=== PATIENT | male | born 1945 | race African-American/Black ===

== ENCOUNTER 2017-01-29 23:02 | Inpatient (IN) | payer MEDICARE, MEDICAID ==
[~2017-01-29] VITALS: Ht 177.8 cm; Wt 88.6 kg
[~2017-01-29 23:02] MED LIST: BENZ1TAB7 GT; CLON1TAB GT; COR3 GT; KEPP500 PO; TAMS-11 GT
[2017-01-30] MEDS ORDERED: SODIUM CHLORIDE 0.9% 1,000 ML IV ONE (01:43)
[2017-01-30] MEDS ORDERED: LORAZEPAM 2MG/ML CPJ IV ONE (01:45)
[2017-01-30] MEDS ORDERED: LEVETIRACETAM 500MG PREMIX 100 ML IV ONE (01:45)
[2017-01-30 02:15] LABS: CHLORIDE 106 mEq/L (98-107); EOSINOPHILS % 1.1 % (0.0-5.0); HEMATOCRIT. 43.5 % (42.0-52.0); HEMOGLOBIN. 14.1 g/dL (14.0-18.0); LYMPHOCYTES % 20.7 % (20.0-50.0); MEAN CORPUSCULAR HEMOGLOBIN 27.4 pg (28.0-32.0); MEAN CORPUSCULAR VOLUME 84.7 fL (80.0-94.0); MEAN PLATELET VOLUME 9.1 fl (7.4-10.4); MONOCYTES % 10.9 % (2.0-8.0); NEUTROPHILS % 66.3 % (40.0-76.0); PLATELET 219 x1000/uL (130-400); RED BLOOD CELL COUNT 5.14 mill/uL (4.7-6.1)
[2017-01-30 02:24] LABS: CARBON DIOXIDE 26 mEq/L (21-32)
[2017-01-30 13:30] VITALS: BP 116/77
[2017-01-30] MEDS ORDERED: MULT-1146 PO (15:04)
[2017-01-30] MEDS ORDERED: COR6 PO (15:04)
[2017-01-30] MEDS ORDERED: LACT10SO6 PO (15:04)
[2017-01-30] MEDS ORDERED: ASPI-1159 PO (15:04)
[2017-01-30] MEDS ORDERED: DOXA2TAB PO (15:04)
[2017-01-30] MEDS ORDERED: PHEN20EL PO (15:04)
[2017-01-30] MEDS ORDERED: LORAZEPAM 2MG/ML CPJ IV PRN (15:15)
[2017-01-30] MEDS ORDERED: MEDICATION NOT ON FORMULARY EA (Lactulose 30 GM) PO SCH (15:30)
[2017-01-30] MEDS ORDERED: LACTULOSE 20G/30ML UDC PO PRN (15:45)
[2017-01-30 16:00] VITALS: BP 119/74
[2017-01-30] MEDS ORDERED: PHENOBARBITAL 60 MG PO SCH (17:00)
[2017-01-30] MEDS: BENZTROPINE MESYLATE 1MG TABLET GT SCH ×2 (18:08→21:00)
[2017-01-30] MEDS: PHENOBARBITAL 60MG TABLET PO SCH (18:09)
[2017-01-30] MEDS: LEVETIRACETAM 500MG TABLET PO SCH (18:09)
[2017-01-30] MEDS ORDERED: INFLUENZA VIRUS VACCINE 0.5ML SYR IM ONE (18:15)
[2017-01-30 20:00] VITALS: BP 111/74
[2017-01-30] MEDS: DOXAZOSIN MESYLATE 2MG TABLET PO SCH (21:14)
[2017-01-30] MEDS: CARVEDILOL 6.25 MG TABLET PO SCH (21:14)
[2017-01-31] VITALS: BP 96/61
[2017-01-31 04:00] VITALS: BP 127/87
[2017-01-31] MEDS ORDERED: MEDICATION NOT ON FORMULARY EA (Multivitamin (Multi Vitamin Daily) 1 TAB) PO SCH (09:00)
[2017-01-31] MEDS: MULTIVITAMINS,THER W-MINERALS TABLET PO SCH (09:00)
[2017-01-31] MEDS: ASPIRIN 81MG EC TABLET PO SCH (09:00)
[2017-01-31] MEDS: LEVETIRACETAM 500MG TABLET PO SCH ×2 (09:21→16:39)
[2017-01-31] MEDS: PHENOBARBITAL 60MG TABLET PO SCH ×2 (09:21→16:39)
[2017-01-31] MEDS: BENZTROPINE MESYLATE 1MG TABLET GT SCH ×3 (09:21→21:29)
[2017-01-31] MEDS: CARVEDILOL 6.25 MG TABLET PO SCH ×3 (09:22→21:29)
[2017-01-31] MEDS ORDERED: ACETAMINOPHEN 325MG TABLET PO PRN (09:45)
[2017-01-31 12:00] VITALS: BP 101/62
[2017-01-31 16:00] VITALS: BP 107/73
[2017-01-31 20:00] VITALS: BP 137/83
[2017-01-31] MEDS: ONDANSETRON HCL 4MG/2ML VIAL IV PRN (20:17)
[2017-01-31] MEDS: DOXAZOSIN MESYLATE 2MG TABLET PO SCH (21:29)
[2017-02-01] VITALS: BP 134/78
[2017-02-01 04:00] VITALS: BP 120/87
[2017-02-01 08:00] VITALS: BP 115/73
[2017-02-01] MEDS: LEVETIRACETAM 500MG TABLET PO SCH ×2 (08:35→17:10)
[2017-02-01] MEDS: PHENOBARBITAL 60MG TABLET PO SCH ×2 (08:35→17:09)
[2017-02-01] MEDS: MULTIVITAMINS,THER W-MINERALS TABLET PO SCH (08:35)
[2017-02-01] MEDS: ASPIRIN 81MG EC TABLET PO SCH (08:35)
[2017-02-01] MEDS: CARVEDILOL 6.25 MG TABLET PO SCH ×2 (08:36→20:46)
[2017-02-01] MEDS: BENZTROPINE MESYLATE 1MG TABLET GT SCH ×2 (08:37→20:47)
[2017-02-01] MEDS: DEXT 5%/0.45% NACL 1000ML 1,000 ML IV SCH (09:15)
[2017-02-01] MEDS: ONDANSETRON HCL 4MG/2ML VIAL IV PRN ×2 (11:22→17:44)
[2017-02-01 12:00] VITALS: BP 108/71
[2017-02-01 16:00] VITALS: BP 105/67
[2017-02-01 20:00] VITALS: BP 143/80
[2017-02-01] MEDS: DOXAZOSIN MESYLATE 2MG TABLET PO SCH (20:47)
[2017-02-02] VITALS: BP 147/82
[2017-02-02] MEDS: DEXT 5%/0.45% NACL 1000ML 1,000 ML IV SCH ×2 (03:50→11:02)
[2017-02-02 04:00] VITALS: BP 110/66
[2017-02-02 08:00] VITALS: BP 110/65
[2017-02-02] MEDS ORDERED: NA PHOS,M-B/NA PHOS,DI-BA ENEMA 118ML PR SCH (08:30)
[2017-02-02] MEDS: ASPIRIN 81MG EC TABLET PO SCH (09:00)
[2017-02-02] MEDS: BENZTROPINE MESYLATE 1MG TABLET GT SCH ×2 (09:22→20:30)
[2017-02-02] MEDS: LEVETIRACETAM 500MG TABLET PO SCH (09:22)
[2017-02-02] MEDS: PHENOBARBITAL 60MG TABLET PO SCH ×2 (09:22→17:52)
[2017-02-02] MEDS: CARVEDILOL 6.25 MG TABLET PO SCH ×2 (09:23→20:29)
[2017-02-02] MEDS: MULTIVITAMINS,THER W-MINERALS TABLET PO SCH (09:25)
[2017-02-02] MEDS ORDERED: CEFAZOLIN 1000MG PREMIX 50 ML IV NR (11:10)
[2017-02-02] MEDS ORDERED: SODIUM CHLORIDE 0.9% 10ML VIAL ONE (11:32)
[2017-02-02] MEDS ORDERED: SIMETHICONE 40 MG/0.6 ML 30ML ONE (11:32)
[2017-02-02] MEDS ORDERED: FENTANYL CITRATE/PF 50MCG/ML 2ML VIAL ONE (11:38)
[2017-02-02] MEDS ORDERED: MIDAZOLAM HCL 5 MG/5 ML VIAL ONE (11:38)
[2017-02-02] MEDS ORDERED: CEFAZOLIN 1000MG PREMIX 50 ML IV ONE (11:39)
[2017-02-02 12:00] VITALS: BP 102/62
[2017-02-02 16:00] VITALS: BP 103/65
[2017-02-02] MEDS: LEVETIRACETAM 500MG/5ML CUP GT SCH (17:52)
[2017-02-02 20:00] VITALS: BP 109/70
[2017-02-02] MEDS: DOXAZOSIN MESYLATE 2MG TABLET PO SCH (20:29)
[2017-02-03] VITALS (11 sets, daily range): BP systolic 75–119; BP diastolic 52–69
[2017-02-03] MEDS: DEXT 5%/0.45% NACL 1000ML 1,000 ML IV SCH ×2 (02:45→07:02)
[2017-02-03] MEDS ORDERED: ASPIRIN 81MG TABLET GT SCH (09:00)
[2017-02-03] MEDS: MULTIVITAMINS,THER W-MINERALS TABLET PO SCH (10:11)
[2017-02-03] MEDS: CARVEDILOL 6.25 MG TABLET PO SCH (10:11)
[2017-02-03] MEDS: BENZTROPINE MESYLATE 1MG TABLET GT SCH (10:11)
[2017-02-03] MEDS: PHENOBARBITAL 60MG TABLET PO SCH ×2 (10:11→17:01)
[2017-02-03] MEDS: LEVETIRACETAM 500MG/5ML CUP GT SCH ×2 (10:11→17:01)
[2017-02-03] MEDS ORDERED: SODIUM CHLORIDE 0.9% 250 ML IV ONE (13:45)
== END 2017-02-03 20:00 | DRG 101 ==
LOC: ER 23:02 → 7WST 01-30 06:40 → EDBEDREQ 01-30 06:44 → EDBEDREQTM 01-30 06:44 → ENRESERV 01-30 12:47
PROVIDERS: ADMIT Internal Medicine; ATTEND Internal Medicine
PROC: 0DH63UZ Insertion of Feeding Device into Stomach, Percutaneous Approach (ICD-10-PCS; principal; 2017-02-02 11:30)
DX: G40.909 Epilepsy, unspecified, not intractable, without status epilepticus (principal); K22.10 Ulcer of esophagus without bleeding; F03.90 Unspecified dementia, unspecified severity, without behavioral disturbance, psychotic disturbance, mood disturbance, and anxiety; S01.81XA Laceration without foreign body of other part of head, initial encounter; F25.9 Schizoaffective disorder, unspecified; I10 Essential (primary) hypertension; R26.81 Unsteadiness on feet; Z99.3 Dependence on wheelchair; F32.9 Major depressive disorder, single episode, unspecified; K21.9 Gastro-esophageal reflux disease without esophagitis; K29.70 Gastritis, unspecified, without bleeding; K44.9 Diaphragmatic hernia without obstruction or gangrene; N40.0 Benign prostatic hyperplasia without lower urinary tract symptoms; Z53.20 Procedure and treatment not carried out because of patient's decision for unspecified reasons; Z90.49 Acquired absence of other specified parts of digestive tract; Z79.899 Other long term (current) drug therapy; Z88.8 Allergy status to other drugs, medicaments and biological substances
CPT/HCPCS: 36415; 70450; 71010; 74000; 80053; 80184; 82542; 85025; 92610; 93005; 96361; 96365; 96375; 99291; A4216; J0690; J1953; J2060; J2250; J2405; J3010; J3490; J7030; J7050

== ENCOUNTER 2017-02-21 16:27 | Inpatient (IN) | payer MEDICARE, MEDICAID ==
[~2017-02-21] VITALS: Ht 177.8 cm; Wt 81.6 kg
[~2017-02-21 16:27] MED LIST changes: +ASPI-1159 PO; -CLON1TAB GT; -COR3 GT; +DOXA2TAB PO; +LACT10SO6 PO; +MULT-1146 PO; +PHEN20EL PO
[2017-02-21] MEDS ORDERED: SODIUM CHLORIDE 0.9% 1,000 ML IV ONE (17:08)
[2017-02-21] MEDS ORDERED: LEVETIRACETAM 500MG PREMIX 100 ML IV ONE (17:15)
[2017-02-21 17:42] LABS: INR 1.1; PROTHROMBIN TIME 11.4 sec (9.4-11.6)
[2017-02-21 17:46] LABS: HEMATOCRIT. 43.4 % (42.0-52.0); HEMOGLOBIN. 14.6 g/dL (14.0-18.0); MEAN CORPUSCULAR VOLUME 83.3 fL (80.0-94.0); MEAN PLATELET VOLUME 9.6 fl (7.4-10.4); PLATELET 215 x1000/uL (130-400); RED BLOOD CELL COUNT 5.21 mill/uL (4.7-6.1); RED CELL DISTRIBUTION WIDTH 15.1 % (11.6-14.6)
[2017-02-21 17:49] LABS: CARBON DIOXIDE 24 mEq/L (21-32); CHLORIDE 104 mEq/L (98-107); CREATINE KINASE 377 IU/L (39-308); TROPONIN I < 0.02 ng/mL (0.00-0.04)
[2017-02-21 17:55] LABS: CARBAMAZEPINE < 0.5 ug/mL (4-12); PHENOBARBITAL 16.3 ug/mL (15.0-40.0); VALPROIC ACID < 3.0 ug/mL (50-100)
[2017-02-21 18:07] LABS: PLATELET ESTIMATE NORMAL
[2017-02-21 19:13] LABS: CLARITY URINE TURBID (CLEAR); COLOR URINE RED (YELLOW); GLUCOSE URINE NEGATIVE (NEGATIVE); KETONES URINE NEGATIVE (NEGATIVE); LEUKOCYTE ESTERASE URINE 2+ (NEGATIVE); NITRITE URINE POSITIVE (NEGATIVE); OCCULT BLOOD URINE 1+ (NEGATIVE); PROTEIN URINE 1+ (NEGATIVE); SPECIFIC GRAVITY URINE 1.021 (1.005-1.030); UROBILINOGEN URINE 0.2 E.U./dL (0.2-1.0)
[2017-02-21] MEDS ORDERED: PIPERACILLIN/TAZ 3.375G PREMIX 50 ML IV ONE (19:30)
[2017-02-21] MEDS ORDERED: LORAZEPAM 2MG/ML CPJ IV ONE (21:15)
[2017-02-21] MEDS ORDERED: LEVOFLOXACIN 500MG PREMIX 100 ML IV SCH (23:30)
[2017-02-21] MEDS ORDERED: ACETAMINOPHEN 650MG/20.3ML UDC PO PRN ×2 (23:30→23:45)
[2017-02-21] MEDS ORDERED: LACTULOSE 20G/30ML UDC PO ONE (23:30)
[2017-02-21] MEDS ORDERED: LACTULOSE 20G/30ML UDC PO PRN (23:30)
[2017-02-22] VITALS (12 sets, daily range): BP systolic 90–115; BP diastolic 30–77
[2017-02-22] MEDS ORDERED: LACTULOSE 20G/30ML UDC PO NR (01:00)
[2017-02-22] MEDS: DEXT 5%/0.45% NACL 1000ML 1,000 ML IV SCH ×2 (01:22→14:50)
[2017-02-22] MEDS ORDERED: LEVOFLOXACIN 500MG PREMIX 100 ML IV SCH ×2 (02:00→05:00)
[2017-02-22 06:58] LABS: HEMATOCRIT. 40.2 % (42.0-52.0); MEAN CORPUSCULAR HEMOGLOBIN 27.4 pg (28.0-32.0); MEAN CORPUSCULAR VOLUME 84.6 fL (80.0-94.0); MEAN PLATELET VOLUME 9.8 fl (7.4-10.4); PLATELET 210 x1000/uL (130-400); RED BLOOD CELL COUNT 4.76 mill/uL (4.7-6.1); RED CELL DISTRIBUTION WIDTH 14.8 % (11.6-14.6)
[2017-02-22 08:24] LABS: CARBON DIOXIDE 27 mEq/L (21-32); CHLORIDE 107 mEq/L (98-107)
[2017-02-22] MEDS ORDERED: DIVALPROEX SODIUM 500MG DR TABLET PO SCH (09:00)
[2017-02-22] MEDS ORDERED: LEVETIRACETAM 500MG/5ML CUP PO SCH (09:00)
[2017-02-22] MEDS: DIVALPROEX SODIUM 500MG DR TABLET PO SCH ×2 (09:54→21:23)
[2017-02-22] MEDS: PHENOBARBITAL ELIXIR 30 MG/7.5ML UDC GT SCH ×2 (09:54→21:23)
[2017-02-22] MEDS: LEVETIRACETAM 500MG/5ML CUP PO SCH ×2 (09:55→21:24)
[2017-02-22] MEDS ORDERED: PIPERACILLIN/TAZOBACTAM 2.25 G in DEXTROSE 5% WATER 50 ML IV SCH (10:00)
[2017-02-22 11:33] LABS: NUCLEATED RED BLOOD CELLS 1 /100 WBC; PLATELET ESTIMATE NORMAL
[2017-02-22] MEDS: PIPERACILLIN/TAZ 3.375G PREMIX 50 ML IV SCH (18:25)
[2017-02-22] MEDS ORDERED: LACTULOSE 20G/30ML UDC PO PRN (21:00)
[2017-02-23] VITALS: BP 100/70
[2017-02-23] MEDS: PIPERACILLIN/TAZ 3.375G PREMIX 50 ML IV SCH ×3 (01:42→17:54)
[2017-02-23 02:00] VITALS: BP 122/85
[2017-02-23 04:00] VITALS: BP 95/72
[2017-02-23] MEDS: PHENOBARBITAL ELIXIR 30 MG/7.5ML UDC GT SCH ×2 (07:51→20:59)
[2017-02-23] MEDS: DIVALPROEX SODIUM 500MG DR TABLET PO SCH ×2 (09:29→20:59)
[2017-02-23] MEDS: LEVETIRACETAM 500MG/5ML CUP PO SCH ×2 (11:06→21:00)
[2017-02-23 22:00] VITALS: BP 122/68
[2017-02-24] MEDS: PIPERACILLIN/TAZ 3.375G PREMIX 50 ML IV SCH (03:41)
[2017-02-24 08:00] VITALS: BP 139/94
[2017-02-24] MEDS ORDERED: SULFAMETHOXAZOLE/TRIMETHOPRIM 800/160MG TABLET PO SCH (09:30)
[2017-02-24] MEDS: LEVETIRACETAM 500MG/5ML CUP PO SCH (09:46)
[2017-02-24] MEDS: PHENOBARBITAL ELIXIR 30 MG/7.5ML UDC GT SCH (09:46)
[2017-02-24] MEDS: DIVALPROEX SODIUM 500MG DR TABLET PO SCH (09:46)
[2017-02-24 10:00] VITALS: BP 107/83
[2017-02-24 12:00] VITALS: BP 117/74
[2017-02-24 14:00] VITALS: BP 95/63
[2017-02-24 15:44] VITALS: BP 104/68
[2017-02-24 16:00] VITALS: BP 104/68
== END 2017-02-24 17:40 | DRG 871 ==
LOC: ER 17:22 → 7WST 19:29 → EDBEDREQ 19:33 → ENRESERV 19:53 → ER 23:50 → 5EST 02-22 00:25
PROVIDERS: ADMIT Internal Medicine; ATTEND Internal Medicine
DX: A41.9 Sepsis, unspecified organism (principal); G93.40 Encephalopathy, unspecified; F20.9 Schizophrenia, unspecified; Z93.1 Gastrostomy status; N39.0 Urinary tract infection, site not specified; F03.90 Unspecified dementia, unspecified severity, without behavioral disturbance, psychotic disturbance, mood disturbance, and anxiety; F32.9 Major depressive disorder, single episode, unspecified; F29 Unspecified psychosis not due to a substance or known physiological condition; G40.909 Epilepsy, unspecified, not intractable, without status epilepticus; I10 Essential (primary) hypertension; E86.0 Dehydration; K21.9 Gastro-esophageal reflux disease without esophagitis; S01.81XA Laceration without foreign body of other part of head, initial encounter; W06.XXXA Fall from bed, initial encounter; M19.90 Unspecified osteoarthritis, unspecified site; Y93.89 Activity, other specified; Y99.8 Other external cause status; Z86.73 Personal history of transient ischemic attack (TIA), and cerebral infarction without residual deficits; Z88.8 Allergy status to other drugs, medicaments and biological substances; Z79.899 Other long term (current) drug therapy; Y92.128 Other place in nursing home as the place of occurrence of the external cause; Z79.82 Long term (current) use of aspirin; Z90.49 Acquired absence of other specified parts of digestive tract; Z91.19 Patient's noncompliance with other medical treatment and regimen
CPT/HCPCS: 36415; 70450; 71010; 74000; 80048; 80053; 80156; 80165; 80184; 80185; 81001; 82542; 82550; 83605; 84443; 84484; 85025; 85610; 87040; 87077; 87086; 87186; 93005; 93970; 96365; 96366; 96375; 99285; J1953; J1956; J2060; J2543; J3490; J7030; J7060

== ENCOUNTER 2017-03-08 18:02 | Emergency (ER) | payer MEDICARE, MEDICAID ==
[~2017-03-08] VITALS: Ht 177.8 cm; Wt 90.0 kg
[2017-03-08 20:12] LABS: CHLORIDE 104 mEq/L (98-107)
[2017-03-08 20:35] LABS: HEMATOCRIT. 41.4 % (42.0-52.0); HEMOGLOBIN. 13.6 g/dL (14.0-18.0); MEAN CORPUSCULAR HEMOGLOBIN 27.8 pg (28.0-32.0); MEAN CORPUSCULAR VOLUME 84.5 fL (80.0-94.0); MEAN PLATELET VOLUME 9.6 fl (7.4-10.4); PLATELET 195 x1000/uL (130-400); RED CELL DISTRIBUTION WIDTH 14.8 % (11.6-14.6)
[2017-03-08 20:37] LABS: CARBON DIOXIDE 25 mEq/L (21-32)
[2017-03-08 20:40] LABS: PHENOBARBITAL 20.5 ug/mL (15.0-40.0)
[2017-03-08 21:36] LABS: PLATELET ESTIMATE NORMAL
[2017-03-08 22:35] LABS: CLARITY URINE CLEAR (CLEAR); COLOR URINE YELLOW (YELLOW); GLUCOSE URINE NEGATIVE (NEGATIVE); KETONES URINE TRACE (NEGATIVE); LEUKOCYTE ESTERASE URINE 1+ (NEGATIVE); NITRITE URINE NEGATIVE (NEGATIVE); OCCULT BLOOD URINE NEGATIVE (NEGATIVE); PROTEIN URINE TRACE (NEGATIVE); SPECIFIC GRAVITY URINE 1.024 (1.005-1.030)
[2017-03-09 01:10] VITALS: BP 102/68
== END 2017-03-09 01:10 ==
LOC: ER 18:16
DX: G40.909 Epilepsy, unspecified, not intractable, without status epilepticus (principal); F03.90 Unspecified dementia, unspecified severity, without behavioral disturbance, psychotic disturbance, mood disturbance, and anxiety; I11.9 Hypertensive heart disease without heart failure; D64.9 Anemia, unspecified; I69.398 Other sequelae of cerebral infarction; Z93.1 Gastrostomy status; K21.9 Gastro-esophageal reflux disease without esophagitis; F20.9 Schizophrenia, unspecified; Z87.440 Personal history of urinary (tract) infections; Z79.82 Long term (current) use of aspirin
CPT/HCPCS: 36415; 80053; 80165; 80184; 81001; 85025; 93005; 99285

== ENCOUNTER 2018-11-07 19:46 | Inpatient (IN) | payer MEDICARE, MEDICAID ==
[~2018-11-07] VITALS: Ht 182.9 cm; Wt 90.7 kg
[~2018-11-07 19:46] MED LIST changes: +ASPI-1158 PO; -ASPI-1159 PO; -BENZ1TAB7 GT; -DOXA2TAB PO; +FENO48 PO; -KEPP500 PO; -LACT10SO6 PO; +LEVE1000 MT; -MULT-1146 PO; +MULT-230 PO; +PHEN100C4 PO; -PHEN20EL PO; +QUET100T PO; +SERT25TA PO; -TAMS-11 GT; +TAMS-11 PO
[2018-11-07] MEDS ORDERED: LEVETIRACETAM 500MG PREMIX 100 ML IV ONE (20:15)
[2018-11-07] MEDS ORDERED: PIPERACILLIN/TAZ 3.375G PREMIX 50 ML IV ONE (20:15)
[2018-11-07] MEDS ORDERED: VANCOMYCIN 1 G PREMIX 200 ML IV ONE (20:15)
[2018-11-07] MEDS ORDERED: SODIUM CHLORIDE 0.9% 1000ML BAG (SEPSIS BOLUS) IV ONE (20:15)
[2018-11-07 20:46] LABS: BASOPHILS % 0.7 % (0.0-2.0); EOSINOPHILS % 3.5 % (0.0-5.0); HEMOGLOBIN. 13.8 g/dL (14.0-18.0); MEAN CORPUSCULAR HEMOGLOBIN 27.8 pg (28.0-32.0); MEAN CORPUSCULAR VOLUME 84.7 fL (80.0-94.0); MEAN PLATELET VOLUME 8.8 fl (7.4-10.4); MONOCYTES % 10.9 % (2.0-8.0); NEUTROPHILS % 66.9 % (40.0-76.0); PLATELET 237 x1000/uL (130-400); RED BLOOD CELL COUNT 4.95 mill/uL (4.7-6.1); RED CELL DISTRIBUTION WIDTH 15.3 % (11.6-14.6)
[2018-11-07 20:49] LABS: CHLORIDE 102 mEq/L (98-107)
[2018-11-07 20:53] LABS: INR 1.1
[2018-11-07 20:58] LABS: CREATINE KINASE 130 IU/L (39-308)
[2018-11-07 20:59] LABS: PHENOBARBITAL 8.8 ug/mL (15.0-40.0)
[2018-11-07 21:02] LABS: CARBAMAZEPINE < 0.5 ug/mL (4-12)
[2018-11-07 21:07] LABS: CLARITY URINE CLOUDY (CLEAR); COLOR URINE YELLOW (YELLOW); KETONES URINE NEGATIVE (NEGATIVE); LEUKOCYTE ESTERASE URINE 3+ (NEGATIVE); NITRITE URINE POSITIVE (NEGATIVE); OCCULT BLOOD URINE TRACE (NEGATIVE); PROTEIN URINE 2+ (NEGATIVE); SPECIFIC GRAVITY URINE 1.023 (1.005-1.030); UROBILINOGEN URINE 0.2 E.U./dL (0.2-1.0)
[2018-11-07] MEDS ORDERED: LORAZEPAM 2MG/ML CPJ IV ONE (22:00)
[2018-11-07] MEDS ORDERED: PHENYTOIN SODIUM 500 MG in SODIUM CHLORIDE 0.9% 50 ML IV ONE (22:15)
[2018-11-08] VITALS (7 sets, daily range): BP systolic 98–127; BP diastolic 52–80
[2018-11-08] MEDS ORDERED: PHEN300C6 PO (00:29)
[2018-11-08] MEDS ORDERED: ACETAMINOPHEN 650MG SUPP PR PRN (03:15)
[2018-11-08] MEDS ORDERED: DIPHENHYDRAMINE 50MG/ML VIAL IV PRN (03:15)
[2018-11-08] MEDS ORDERED: ONDANSETRON HCL 4MG/2ML INJ IV PRN (03:15)
[2018-11-08] MEDS: DEXT 5%/0.45% NACL 1000ML 1,000 ML IV SCH (04:26)
[2018-11-08] MEDS ORDERED: ACETAMINOPHEN 325MG TABLET PO PRN (07:45)
[2018-11-08] MEDS: DOCUSATE SODIUM 250MG CAPSULE PO SCH (08:41)
[2018-11-08] MEDS: ENOXAPARIN 40MG/0.4ML SYR SUBCUT SCH (08:41)
[2018-11-08] MEDS: LORAZEPAM 2MG/ML CPJ IV PRN ×2 (08:42→18:51)
[2018-11-08] MEDS: PHENYTOIN SODIUM 100MG/2ML VIAL IV SCH ×2 (10:39→15:02)
[2018-11-08] MEDS: LEVETIRACETAM 1,000 MG in SODIUM CHLORIDE 0.9% 100 ML IV SCH ×2 (10:39→20:46)
[2018-11-08 12:01] LABS: CREATINE KINASE 318 IU/L (39-308)
[2018-11-08] MEDS ORDERED: PHENYTOIN 10MG/ML SYR IV SCH (14:00)
[2018-11-08] MEDS ORDERED: LEVOFLOXACIN 500MG PREMIX 100 ML IV SCH (14:00)
[2018-11-08 15:32] LABS: HEMATOCRIT. 38.6 % (42.0-52.0); HEMOGLOBIN. 12.6 g/dL (14.0-18.0); MEAN CORPUSCULAR HEMOGLOBIN 27.8 pg (28.0-32.0); MEAN CORPUSCULAR VOLUME 85.1 fL (80.0-94.0); MEAN PLATELET VOLUME 8.4 fl (7.4-10.4); PLATELET 228 x1000/uL (130-400); RED BLOOD CELL COUNT 4.54 mill/uL (4.7-6.1); RED CELL DISTRIBUTION WIDTH 15.1 % (11.6-14.6)
[2018-11-08 15:50] LABS: CHLORIDE 107 mEq/L (98-107)
[2018-11-08 18:29] LABS: ATYPICAL LYMPHOCYTES 1; PLATELET ESTIMATE NORMAL
[2018-11-09] VITALS: BP 94/58
[2018-11-09] MEDS: DEXT 5%/0.45% NACL 1000ML 1,000 ML IV SCH (02:01)
[2018-11-09] MEDS: PHENYTOIN SODIUM 100MG/2ML VIAL IV SCH ×2 (02:05→22:56)
[2018-11-09 04:00] VITALS: BP 95/61
[2018-11-09 06:55] LABS: CHLORIDE 107 mEq/L (98-107)
[2018-11-09 07:01] LABS: PHOSPHORUS 1.7 mg/dL (2.5-4.9)
[2018-11-09 08:00] VITALS: BP 113/69
[2018-11-09] MEDS ORDERED: PHENYTOIN SODIUM 100MG/2ML VIAL IV SCH (08:00)
[2018-11-09] MEDS: DOCUSATE SODIUM 250MG CAPSULE PO SCH (08:24)
[2018-11-09] MEDS: ENOXAPARIN 40MG/0.4ML SYR SUBCUT SCH (08:25)
[2018-11-09] MEDS: LEVETIRACETAM 1,000 MG in SODIUM CHLORIDE 0.9% 100 ML IV SCH (08:25)
[2018-11-09] MEDS ORDERED: LACTULOSE 20G/30ML UDC PO PRN (09:15)
[2018-11-09] MEDS ORDERED: POTASSIUM PHOS,M-BASIC-D-BASIC 20 MMOL in DEXT 5% WATER 250 ML IV SCH (11:00)
[2018-11-09 12:00] VITALS: BP 118/68
[2018-11-09 16:00] VITALS: BP 126/78
[2018-11-09] MEDS: LEVOFLOXACIN 500MG TABLET PO SCH ×2 (19:30→20:35)
[2018-11-09 20:00] VITALS: BP 106/68
[2018-11-09] MEDS: LEVETIRACETAM 500MG TABLET PO SCH ×2 (20:35→21:00)
[2018-11-09] MEDS ORDERED: PHENYTOIN SODIUM EXTENDED 100MG CAPSULE PO SCH (22:00)
[2018-11-10] VITALS: BP 102/61
[2018-11-10] MEDS: LEVETIRACETAM 1,000 MG in SODIUM CHLORIDE 0.9% 100 ML IV SCH ×3 (02:48→20:59)
[2018-11-10 04:00] VITALS: BP 132/75
[2018-11-10] MEDS: PHENYTOIN SODIUM 100MG/2ML VIAL IV SCH ×3 (06:17→22:00)
[2018-11-10 07:21] LABS: HEMOGLOBIN. 12.6 g/dL (14.0-18.0); MEAN CORPUSCULAR HEMOGLOBIN 28.1 pg (28.0-32.0); MEAN CORPUSCULAR VOLUME 86.6 fL (80.0-94.0); MEAN PLATELET VOLUME 9.5 fl (7.4-10.4); PLATELET 204 x1000/uL (130-400); RED CELL DISTRIBUTION WIDTH 15.2 % (11.6-14.6)
[2018-11-10 08:00] VITALS: BP 131/78
[2018-11-10 08:11] LABS: CHLORIDE 106 mEq/L (98-107)
[2018-11-10 08:37] LABS: PHOSPHORUS 2.9 mg/dL (2.5-4.9)
[2018-11-10] MEDS: LEVOFLOXACIN 500MG TABLET PO SCH (09:00)
[2018-11-10] MEDS: DOCUSATE SODIUM 250MG CAPSULE PO SCH (09:00)
[2018-11-10] MEDS ORDERED: NA PHOS,M-B/NA PHOS,DI-BA ENEMA 118ML PR NR (09:45)
[2018-11-10] MEDS: METOCLOPRAMIDE HCL 10MG/2ML VIAL IV SCH ×2 (09:55→17:29)
[2018-11-10] MEDS: ENOXAPARIN 40MG/0.4ML SYR SUBCUT SCH (09:55)
[2018-11-10] MEDS ORDERED: LEVOFLOXACIN 500MG PREMIX 100 ML IV SCH (11:00)
[2018-11-10 12:00] VITALS: BP 119/68
[2018-11-10] MEDS ORDERED: SODIUM BICARBONATE 4% (2.4MEQ) 5ML VIAL IV ONE (13:26)
[2018-11-10] MEDS ORDERED: LIDOCAINE HCL 1% 20ML VIAL (Pyxis) INJ ONE (13:26)
[2018-11-10] MEDS: DEXT 5%/0.45% NACL 1000ML 1,000 ML IV SCH (13:39)
[2018-11-10] MEDS: MEROPENEM 1000MG in NORMAL SALINE 100ML IV SCH ×2 (15:26→22:06)
[2018-11-10 16:00] VITALS: BP 108/66
[2018-11-10 16:37] LABS: PLATELET ESTIMATE NORMAL
[2018-11-10] MEDS: LORAZEPAM 2MG/ML CPJ IV PRN (17:54)
[2018-11-10 20:00] VITALS: BP 99/52
[2018-11-11] VITALS: BP 107/60
[2018-11-11] MEDS: METOCLOPRAMIDE HCL 10MG/2ML VIAL IV SCH ×3 (01:23→18:14)
[2018-11-11 04:00] VITALS: BP 105/67
[2018-11-11] MEDS: PHENYTOIN SODIUM 100MG/2ML VIAL IV SCH ×3 (05:49→21:42)
[2018-11-11] MEDS: DEXT 5%/0.45% NACL 1000ML 1,000 ML IV SCH ×3 (05:50→18:14)
[2018-11-11] MEDS: MEROPENEM 1000MG in NORMAL SALINE 100ML IV SCH ×3 (06:11→23:25)
[2018-11-11 08:00] VITALS: BP 132/66
[2018-11-11] MEDS: DOCUSATE SODIUM 250MG CAPSULE PO SCH (09:00)
[2018-11-11] MEDS: LEVETIRACETAM 1,000 MG in SODIUM CHLORIDE 0.9% 100 ML IV SCH ×2 (09:36→21:42)
[2018-11-11] MEDS: ENOXAPARIN 40MG/0.4ML SYR SUBCUT SCH (11:13)
[2018-11-11 12:00] VITALS: BP 101/66
[2018-11-11 13:28] LABS: ETHANOL BLOOD < 10 mg/dL
[2018-11-11 14:34] LABS: *AMPHETAMINES SCREEN URINE NEGATIVE (NEGATIVE); *BARBITURATES SCREEN URINE PRESUMTIVE POSITIVE (NEGATIVE); *BENZODIAZEPINES SCREEN URINE NEGATIVE (NEGATIVE); *COCAINE SCREEN URINE NEGATIVE (NEGATIVE); METHADONE URINE SCREEN NEGATIVE (NEGATIVE); OPIATES URINE SCREEN NEGATIVE (NEGATIVE); PHENCYCLIDINE URINE SCREEN NEGATIVE (NEGATIVE)
[2018-11-11 14:35] LABS: CANNABINOID URINE SCREEN NEGATIVE (NEGATIVE)
[2018-11-11 16:00] VITALS: BP 104/66
[2018-11-11 20:00] VITALS: BP 117/79
[2018-11-12] VITALS: BP 124/78
[2018-11-12] MEDS: METOCLOPRAMIDE HCL 10MG/2ML VIAL IV SCH ×3 (03:44→18:12)
[2018-11-12 04:00] VITALS: BP 112/72
[2018-11-12] MEDS: DEXT 5%/0.45% NACL 1000ML 1,000 ML IV SCH ×2 (06:18→14:31)
[2018-11-12] MEDS: PHENYTOIN SODIUM 100MG/2ML VIAL IV SCH ×3 (06:18→21:40)
[2018-11-12] MEDS: MEROPENEM 1000MG in NORMAL SALINE 100ML IV SCH ×3 (06:19→22:47)
[2018-11-12 06:56] LABS: CHLORIDE 108 mEq/L (98-107); INR 1.2; PARTIAL THROMBOPLASTIN TIME 25.9 sec (23.4-31.0)
[2018-11-12 07:10] LABS: HEMATOCRIT. 36.7 % (42.0-52.0); HEMOGLOBIN. 11.8 g/dL (14.0-18.0); MEAN CORPUSCULAR HEMOGLOBIN 27.6 pg (28.0-32.0); MEAN CORPUSCULAR VOLUME 85.8 fL (80.0-94.0); MEAN PLATELET VOLUME 9.5 fl (7.4-10.4); PLATELET 176 x1000/uL (130-400); RED BLOOD CELL COUNT 4.28 mill/uL (4.7-6.1); RED CELL DISTRIBUTION WIDTH 15.3 % (11.6-14.6)
[2018-11-12] MEDS ORDERED: POTASSIUM CHLORIDE 20MEQ/PACKET PO NR (08:30)
[2018-11-12] MEDS ORDERED: PHENYTOIN SODIUM 600 MG in SODIUM CHLORIDE 0.9% 100 ML IV NR (09:00)
[2018-11-12] MEDS: DOCUSATE SODIUM 250MG CAPSULE PO SCH (09:00)
[2018-11-12] MEDS ORDERED: LORAZEPAM 2MG/ML CPJ IM PRN (09:30)
[2018-11-12] MEDS: LEVETIRACETAM 1,000 MG in SODIUM CHLORIDE 0.9% 100 ML IV SCH ×2 (11:01→20:36)
[2018-11-12 11:59] VITALS: BP 117/73
[2018-11-12] MEDS ORDERED: CEFAZOLIN 1000MG PREMIX 50 ML IV SCH (13:00)
[2018-11-12 13:24] LABS: PLATELET ESTIMATE NORMAL
[2018-11-12] MEDS ORDERED: FENTANYL CITRATE/PF 50MCG/ML 2ML VIAL IV ONE (16:15)
[2018-11-12] MEDS ORDERED: FENTANYL CITRATE/PF 50MCG/ML 2ML VIAL ONE (16:18)
[2018-11-12] MEDS ORDERED: MIDAZOLAM HCL 5 MG/5 ML VIAL ONE (16:18)
[2018-11-12] MEDS ORDERED: MIDAZOLAM HCL 5 MG/5 ML VIAL IV ONE (18:00)
[2018-11-12 18:27] VITALS: BP 115/75
[2018-11-12 20:00] VITALS: BP 118/66
[2018-11-13] VITALS: BP 113/73
[2018-11-13] MEDS: DEXT 5%/0.45% NACL 1000ML 1,000 ML IV SCH ×2 (00:19→02:44)
[2018-11-13] MEDS: LORAZEPAM 2MG/ML CPJ IV PRN (00:50)
[2018-11-13] MEDS: METOCLOPRAMIDE HCL 10MG/2ML VIAL IV SCH ×2 (01:54→09:38)
[2018-11-13 04:00] VITALS: BP 118/77
[2018-11-13] MEDS: PHENYTOIN SODIUM 100MG/2ML VIAL IV SCH ×2 (06:02→14:40)
[2018-11-13] MEDS: MEROPENEM 1000MG in NORMAL SALINE 100ML IV SCH ×2 (06:02→15:00)
[2018-11-13 06:53] LABS: BASOPHILS % 0.4 % (0.0-2.0); EOSINOPHILS % 10.8 % (0.0-5.0); HEMATOCRIT. 36.7 % (42.0-52.0); HEMOGLOBIN. 11.9 g/dL (14.0-18.0); MEAN CORPUSCULAR HEMOGLOBIN 27.6 pg (28.0-32.0); MEAN CORPUSCULAR VOLUME 85.3 fL (80.0-94.0); MEAN PLATELET VOLUME 8.6 fl (7.4-10.4); MONOCYTES % 13.9 % (2.0-8.0); NEUTROPHILS % 59.9 % (40.0-76.0); PLATELET 197 x1000/uL (130-400); RED BLOOD CELL COUNT 4.31 mill/uL (4.7-6.1); RED CELL DISTRIBUTION WIDTH 15.1 % (11.6-14.6)
[2018-11-13 07:06] LABS: CHLORIDE 105 mEq/L (98-107)
[2018-11-13 07:20] LABS: PHOSPHORUS 1.9 mg/dL (2.5-4.9)
[2018-11-13 08:00] VITALS: BP 121/62
[2018-11-13] MEDS: DOCUSATE SODIUM 250MG CAPSULE PO SCH (08:49)
[2018-11-13] MEDS: LEVETIRACETAM 1,000 MG in SODIUM CHLORIDE 0.9% 100 ML IV SCH (08:49)
[2018-11-13] MEDS ORDERED: POTASSIUM-SODIUM PHOSPHATE POWDER PACKET PO NR (09:00)
[2018-11-13] MEDS ORDERED: ENOXAPARIN 40MG/0.4ML SYR SUBCUT SCH (09:15)
[2018-11-13] MEDS ORDERED: BISACODYL 10MG SUPP PR PRN (11:00)
[2018-11-13] MEDS ORDERED: BISACODYL 10MG SUPP PR NR (11:00)
[2018-11-13 12:02] VITALS: BP 105/57
[2018-11-13 15:03] VITALS: BP 105/57
[2018-11-13 16:00] VITALS: BP 114/66
== END 2018-11-13 18:10 | DRG 872 ==
LOC: ER 19:46 → 8WST 22:11 → EDBEDREQSVC 22:14 → EDBEDREQTM 22:14 → EDBEDREQ 22:14 → ENRESERV 22:42
PROVIDERS: ADMIT Internal Medicine; ATTEND Internal Medicine
PROC: 05H633Z Insertion of Infusion Device into Left Subclavian Vein, Percutaneous Approach (ICD-10-PCS; principal; 2018-11-10)
PROC: B547ZZA Ultrasonography of Left Subclavian Vein, Guidance (ICD-10-PCS; 2018-11-10)
PROC: 0DH63UZ Insertion of Feeding Device into Stomach, Percutaneous Approach (ICD-10-PCS; 2018-11-12)
DX: A41.51 Sepsis due to Escherichia coli [E. coli] (principal); N39.0 Urinary tract infection, site not specified; E87.2 Acidosis; E44.1 Mild protein-calorie malnutrition; E87.6 Hypokalemia; D64.9 Anemia, unspecified; E78.00 Pure hypercholesterolemia, unspecified; E78.5 Hyperlipidemia, unspecified; E83.39 Other disorders of phosphorus metabolism; F03.90 Unspecified dementia, unspecified severity, without behavioral disturbance, psychotic disturbance, mood disturbance, and anxiety; I11.9 Hypertensive heart disease without heart failure; I48.91 Unspecified atrial fibrillation; K21.9 Gastro-esophageal reflux disease without esophagitis; K29.70 Gastritis, unspecified, without bleeding; M19.90 Unspecified osteoarthritis, unspecified site; N40.0 Benign prostatic hyperplasia without lower urinary tract symptoms; R62.7 Adult failure to thrive; R13.12 Dysphagia, oropharyngeal phase; G40.909 Epilepsy, unspecified, not intractable, without status epilepticus; Z86.73 Personal history of transient ischemic attack (TIA), and cerebral infarction without residual deficits; Z91.14 Patient's other noncompliance with medication regimen; Z91.19 Patient's noncompliance with other medical treatment and regimen; Z99.3 Dependence on wheelchair; Z68.27 Body mass index [BMI] 27.0-27.9, adult; Z88.8 Allergy status to other drugs, medicaments and biological substances; Z79.899 Other long term (current) drug therapy
CPT/HCPCS: 36415; 71045; 74018; 76937; 80048; 80156; 80165; 80184; 80185; 80305; 80320; 82550; 83605; 83735; 83880; 84100; 84145; 84443; 84484; 87077; 87186; 92610; 93005; 93970; 96365; 96368; 99291; A6261; C1725; C1893; J0690; J1165; J1650; J1953; J1956; J2060; J2185; J2250; J2405; J2543; J2765; J3010; J3370; J3490; J7030; J7050; J7060; G0480

== ENCOUNTER 2019-01-04 14:24 | Inpatient (IN) | payer MEDICARE, MEDICAID ==
[~2019-01-04] VITALS: Ht 175.3 cm; Wt 76.7 kg
[~2019-01-04 14:24] MED LIST changes: +ASPI-1158 GT; -ASPI-1158 PO; +LEVE1000 GT; -LEVE1000 MT; +MULT-230 GT; -MULT-230 PO; -PHEN100C4 PO; +PHEN300C6 PO; +TAMS-11 GT; -TAMS-11 PO
[2019-01-04] MEDS ORDERED: SODIUM CHLORIDE 0.9% 1,000 ML IV ONE (15:32)
[2019-01-04 16:52] LABS: HEMOGLOBIN. 14.1 g/dL (14.0-18.0); MEAN CORPUSCULAR HEMOGLOBIN 28.2 pg (28.0-32.0); MEAN CORPUSCULAR VOLUME 88.2 fL (80.0-94.0); MEAN PLATELET VOLUME 9.9 fl (7.4-10.4); PLATELET 200 x1000/uL (130-400); RED BLOOD CELL COUNT 4.99 mill/uL (4.7-6.1)
[2019-01-04 17:01] LABS: CHLORIDE 111 mEq/L (98-107); INR 1.1; PROTHROMBIN TIME 11.1 sec (9.6-11.0)
[2019-01-04 17:05] LABS: ETHANOL BLOOD < 10 mg/dL
[2019-01-04 17:33] LABS: PLATELET ESTIMATE NORMAL
[2019-01-04] MEDS ORDERED: LORAZEPAM 2MG/ML CPJ IV ONE (18:00)
[2019-01-04 20:24] LABS: CLARITY URINE CLEAR (CLEAR); COLOR URINE DARK YELLOW (YELLOW); KETONES URINE TRACE (NEGATIVE); LEUKOCYTE ESTERASE URINE 1+ (NEGATIVE); NITRITE URINE NEGATIVE (NEGATIVE); OCCULT BLOOD URINE NEGATIVE (NEGATIVE); PH URINE 5.5 (4.5-8.0); PROTEIN URINE 1+ (NEGATIVE); SPECIFIC GRAVITY URINE 1.025 (1.005-1.030)
[2019-01-04 20:37] LABS: *AMPHETAMINES SCREEN URINE NEGATIVE (NEGATIVE); *BARBITURATES SCREEN URINE NEGATIVE (NEGATIVE); *BENZODIAZEPINES SCREEN URINE NEGATIVE (NEGATIVE); *COCAINE SCREEN URINE NEGATIVE (NEGATIVE); METHADONE URINE SCREEN NEGATIVE (NEGATIVE); OPIATES URINE SCREEN NEGATIVE (NEGATIVE)
[2019-01-04 20:38] LABS: CANNABINOID URINE SCREEN NEGATIVE (NEGATIVE); PHENCYCLIDINE URINE SCREEN NEGATIVE (NEGATIVE)
[2019-01-04 22:10] VITALS: BP 109/68
[2019-01-04 22:12] VITALS: BP 109/68
[2019-01-04] MEDS ORDERED: CEFTRIAXONE 1 G PREMIX 50 ML IV NR (22:45)
[2019-01-04] MEDS ORDERED: DIPH25CA83 GT (23:03)
[2019-01-04] MEDS ORDERED: ACET-2853 GT (23:03)
[2019-01-04] MEDS ORDERED: LACT10SO GT (23:03)
[2019-01-04] MEDS ORDERED: BENZ1TAB7 GT (23:03)
[2019-01-04] MEDS ORDERED: IPRA3AMP9 HHN (23:03)
[2019-01-04] MEDS ORDERED: PHEN100C4 GT (23:03)
[2019-01-05] VITALS: BP 101/75
[2019-01-05] MEDS ORDERED: IPRATROPIUM/ALBUTEROL 0.5-3(2.5)MG/3ML NEB HHN PRN
[2019-01-05] MEDS ORDERED: ACETAMINOPHEN 650MG/20.3ML UDC GT PRN
[2019-01-05] MEDS ORDERED: DIPHENHYDRAMINE 12.5MG/5ML UDC GT PRN
[2019-01-05] MEDS ORDERED: LACTULOSE 20G/30ML UDC GT PRN
[2019-01-05] MEDS: CEFTRIAXONE 1 G PREMIX 50 ML IV SCH (02:31)
[2019-01-05 04:00] VITALS: BP 103/62
[2019-01-05 05:53] LABS: CHLORIDE 117 mEq/L (98-107)
[2019-01-05] MEDS ORDERED: PHENYTOIN SODIUM EXTENDED 100MG CAPSULE PO SCH (06:00)
[2019-01-05] MEDS: PHENYTOIN 100 MG/4 ML UDC PO SCH ×3 (06:00→21:17)
[2019-01-05] MEDS ORDERED: PHENYTOIN SODIUM 1,000 MG in SODIUM CHLORIDE 0.9% 100 ML IV NR (06:30)
[2019-01-05] MEDS: DEXTROSE 5% WATER 1,000 ML IV SCH ×2 (06:37→17:26)
[2019-01-05 08:00] VITALS: BP 101/67
[2019-01-05] MEDS ORDERED: TAMSULOSIN HCL 0.4MG SR CAPSULE PO SCH (09:00)
[2019-01-05] MEDS ORDERED: BENZTROPINE MESYLATE 1MG TABLET GT SCH (09:00)
[2019-01-05] MEDS: ASPIRIN 81MG TABLET GT SCH (09:07)
[2019-01-05] MEDS: MULTIVITAMINS,THER W-MINERALS TABLET GT SCH (09:07)
[2019-01-05] MEDS: LEVETIRACETAM 500MG/5ML CUP GT SCH ×2 (09:07→21:16)
[2019-01-05 12:45] LABS: HEPATITIS B SURFACE ANTIGEN NEGATIVE
[2019-01-05 13:00] VITALS: BP 114/75
[2019-01-05 13:15] LABS: HEPATITIS A AB IGM NEGATIVE (NEGATIVE)
[2019-01-05 16:00] VITALS: BP 109/71
[2019-01-05 20:00] VITALS: BP 104/69
[2019-01-05] MEDS: FENOFIBRATE NANOCRYSTALLIZED 48MG TABLET PO SCH (21:17)
[2019-01-06] VITALS: BP 96/65
[2019-01-06] MEDS: DEXTROSE 5% WATER 1,000 ML IV SCH ×2 (00:54→15:05)
[2019-01-06] MEDS: CEFTRIAXONE 1 G PREMIX 50 ML IV SCH (01:23)
[2019-01-06 04:00] VITALS: BP 109/61
[2019-01-06] MEDS: PHENYTOIN 100 MG/4 ML UDC PO SCH ×3 (05:03→21:53)
[2019-01-06 08:00] VITALS: BP 105/70
[2019-01-06] MEDS: ASPIRIN 81MG TABLET GT SCH (10:20)
[2019-01-06] MEDS: MULTIVITAMINS,THER W-MINERALS TABLET GT SCH (10:20)
[2019-01-06 12:00] VITALS: BP 151/89
[2019-01-06 12:36] LABS: CHLORIDE 114 mEq/L (98-107)
[2019-01-06] MEDS: LEVETIRACETAM 500MG/5ML CUP GT SCH ×2 (15:45→21:53)
[2019-01-06 16:00] VITALS: BP 147/82
[2019-01-06 20:00] VITALS: BP 123/80
[2019-01-06] MEDS: FENOFIBRATE NANOCRYSTALLIZED 48MG TABLET PO SCH (21:53)
[2019-01-07] VITALS: BP 110/72
[2019-01-07] MEDS ORDERED: ONDANSETRON HCL 4MG/2ML INJ IV PRN (00:15)
[2019-01-07] MEDS ORDERED: DEXT 5%/0.45% NACL 1000ML 1,000 ML IV SCH (01:00)
[2019-01-07] MEDS: CEFTRIAXONE 1 G PREMIX 50 ML IV SCH (02:35)
[2019-01-07 04:00] VITALS: BP 125/79
[2019-01-07] MEDS: PHENYTOIN 100 MG/4 ML UDC PO SCH (06:50)
[2019-01-07 07:37] LABS: CHLORIDE 110 mEq/L (98-107)
[2019-01-07 07:41] LABS: BASOPHILS % 0.5 % (0.0-2.0); EOSINOPHILS % 4.6 % (0.0-5.0); HEMATOCRIT. 36.9 % (42.0-52.0); HEMOGLOBIN. 11.8 g/dL (14.0-18.0); LYMPHOCYTES % 17.5 % (20.0-50.0); MEAN CORPUSCULAR VOLUME 87.1 fL (80.0-94.0); MEAN PLATELET VOLUME 10.9 fl (7.4-10.4); MONOCYTES % 12.4 % (2.0-8.0); PLATELET 172 x1000/uL (130-400); RED BLOOD CELL COUNT 4.24 mill/uL (4.7-6.1); RED CELL DISTRIBUTION WIDTH 15.4 % (11.6-14.6)
[2019-01-07 08:00] VITALS: BP 119/81
[2019-01-07] MEDS: ASPIRIN 81MG TABLET GT SCH (09:37)
[2019-01-07] MEDS: MULTIVITAMINS,THER W-MINERALS TABLET GT SCH (09:37)
[2019-01-07] MEDS: LEVETIRACETAM 500MG/5ML CUP GT SCH ×2 (09:37→21:21)
[2019-01-07] MEDS ORDERED: KCL 20MEQ/100ML PREMIX 100 ML IV SCH (11:00)
[2019-01-07 12:00] VITALS: BP 128/76
[2019-01-07] MEDS: NA PHOS,M-B/NA PHOS,DI-BA ENEMA 118ML PR SCH ×2 (12:17→14:15)
[2019-01-07] MEDS: DEXT 5%/0.45% NACL 1000ML 1,000 ML IV SCH (12:19)
[2019-01-07] MEDS: METOCLOPRAMIDE HCL 10MG/2ML VIAL IV SCH ×2 (12:31→17:56)
[2019-01-07] MEDS: PHENYTOIN SODIUM 100MG/2ML VIAL IV SCH ×2 (15:15→21:21)
[2019-01-07 20:00] VITALS: BP 133/84
[2019-01-07] MEDS: FENOFIBRATE NANOCRYSTALLIZED 48MG TABLET PO SCH (21:21)
[2019-01-08] VITALS: BP 113/79
[2019-01-08] MEDS: METOCLOPRAMIDE HCL 10MG/2ML VIAL IV SCH ×4 (03:31→17:46)
[2019-01-08] MEDS: CEFTRIAXONE 1 G PREMIX 50 ML IV SCH (03:31)
[2019-01-08 04:00] VITALS: BP 111/76
[2019-01-08] MEDS: PHENYTOIN SODIUM 100MG/2ML VIAL IV SCH ×3 (05:33→20:52)
[2019-01-08] MEDS: DEXT 5%/0.45% NACL 1000ML 1,000 ML IV SCH (05:40)
[2019-01-08 08:00] VITALS: BP 113/72
[2019-01-08] MEDS: MULTIVITAMINS,THER W-MINERALS TABLET GT SCH (09:06)
[2019-01-08] MEDS: ASPIRIN 81MG TABLET GT SCH (09:06)
[2019-01-08] MEDS: LEVETIRACETAM 500MG/5ML CUP GT SCH ×2 (09:07→20:52)
[2019-01-08 10:56] LABS: CHLORIDE 112 mEq/L (98-107)
[2019-01-08] MEDS ORDERED: NA PHOS,M-B/NA PHOS,DI-BA ENEMA 118ML PR NR (11:30)
[2019-01-08 12:00] VITALS: BP 107/74
[2019-01-08 16:00] VITALS: BP 125/80
[2019-01-08 16:33] VITALS: BP 125/80
[2019-01-08] MEDS: FENOFIBRATE NANOCRYSTALLIZED 48MG TABLET PO SCH (20:52)
== END 2019-01-08 21:12 | DRG 682 ==
LOC: ER 14:24 → 5WST 17:31 → ENRESERV 21:05
PROVIDERS: ADMIT Internal Medicine; ATTEND Internal Medicine
DX: N17.9 Acute kidney failure, unspecified (principal); G93.41 Metabolic encephalopathy; E87.0 Hyperosmolality and hypernatremia; E46 Unspecified protein-calorie malnutrition; D64.9 Anemia, unspecified; F03.90 Unspecified dementia, unspecified severity, without behavioral disturbance, psychotic disturbance, mood disturbance, and anxiety; F20.9 Schizophrenia, unspecified; I12.9 Hypertensive chronic kidney disease with stage 1 through stage 4 chronic kidney disease, or unspecified chronic kidney disease; I25.10 Atherosclerotic heart disease of native coronary artery without angina pectoris; I48.91 Unspecified atrial fibrillation; N18.9 Chronic kidney disease, unspecified; E78.00 Pure hypercholesterolemia, unspecified; K59.00 Constipation, unspecified; F32.9 Major depressive disorder, single episode, unspecified; E86.0 Dehydration; R25.1 Tremor, unspecified; R16.0 Hepatomegaly, not elsewhere classified; E87.6 Hypokalemia; G89.29 Other chronic pain; M54.5 Low back pain; R56.9 Unspecified convulsions; Z87.01 Personal history of pneumonia (recurrent); Z79.82 Long term (current) use of aspirin; Z86.73 Personal history of transient ischemic attack (TIA), and cerebral infarction without residual deficits; Z93.1 Gastrostomy status; Z91.19 Patient's noncompliance with other medical treatment and regimen; Z68.25 Body mass index [BMI] 25.0-25.9, adult; Z79.899 Other long term (current) drug therapy; Z88.8 Allergy status to other drugs, medicaments and biological substances; Z87.440 Personal history of urinary (tract) infections
CPT/HCPCS: 36415; 71045; 74018; 76700; 80048; 80076; 80185; 80305; 80307; 80320; 80329; 81003; 82140; 82542; 83880; 84443; 84484; 86705; 86709; 86803; 87340; 92610; 93005; 93970; 99285; J0696; J1165; J2060; J2405; J2765; J3480; J7030; J7040; J7050; J7070; G0480

== ENCOUNTER 2019-01-28 12:30 | Emergency (ER) | payer MEDICARE, MEDICAID ==
[~2019-01-28] VITALS: Ht 177.8 cm; Wt 80.0 kg
[~2019-01-28 12:30] MED LIST changes: +ACET-2853 GT; +BENZ1TAB7 GT; +DIPH25CA83 GT; +IPRA3AMP9 HHN; +LACT10SO GT; +PHEN100C4 GT; -PHEN300C6 PO; -QUET100T PO; -SERT25TA PO
[2019-01-28] MEDS ORDERED: LEVETIRACETAM 1000MG/100ML 100 ML IV ONE (12:45)
[2019-01-28 13:07] LABS: BASOPHILS % 1.1 % (0.0-2.0); EOSINOPHILS % 4.1 % (0.0-5.0); HEMATOCRIT. 36.7 % (42.0-52.0); HEMOGLOBIN. 11.9 g/dL (14.0-18.0); LYMPHOCYTES % 25.4 % (20.0-50.0); MEAN CORPUSCULAR HEMOGLOBIN 28.1 pg (28.0-32.0); MEAN CORPUSCULAR VOLUME 86.5 fL (80.0-94.0); MEAN PLATELET VOLUME 9.1 fl (7.4-10.4); MONOCYTES % 14.5 % (2.0-8.0); NEUTROPHILS % 54.9 % (40.0-76.0); PLATELET 237 x1000/uL (130-400); RED BLOOD CELL COUNT 4.24 mill/uL (4.7-6.1); RED CELL DISTRIBUTION WIDTH 16.1 % (11.6-14.6)
[2019-01-28 13:25] LABS: CHLORIDE 103 mEq/L (98-107)
[2019-01-28 13:26] LABS: CLARITY URINE CLOUDY (CLEAR); COLOR URINE YELLOW (YELLOW); KETONES URINE TRACE (NEGATIVE); LEUKOCYTE ESTERASE URINE 2+ (NEGATIVE); NITRITE URINE POSITIVE (NEGATIVE); OCCULT BLOOD URINE NEGATIVE (NEGATIVE); PH URINE 5.5 (4.5-8.0); PROTEIN URINE 2+ (NEGATIVE); SPECIFIC GRAVITY URINE 1.023 (1.005-1.030)
[2019-01-28 13:29] LABS: ETHANOL BLOOD < 10 mg/dL
[2019-01-28 13:51] LABS: *AMPHETAMINES SCREEN URINE NEGATIVE (NEGATIVE); *BARBITURATES SCREEN URINE NEGATIVE (NEGATIVE); *BENZODIAZEPINES SCREEN URINE PRESUMTIVE POSITIVE (NEGATIVE); *COCAINE SCREEN URINE NEGATIVE (NEGATIVE); CANNABINOID URINE SCREEN NEGATIVE (NEGATIVE); METHADONE URINE SCREEN NEGATIVE (NEGATIVE); OPIATES URINE SCREEN NEGATIVE (NEGATIVE); PHENCYCLIDINE URINE SCREEN NEGATIVE (NEGATIVE)
[2019-01-28] MEDS ORDERED: CEFTRIAXONE 1 G PREMIX 50 ML IV ONE (14:30)
[2019-01-28 17:59] VITALS: BP 124/75
== END 2019-01-28 18:02 | disposition home or self-care (01) ==
LOC: ER 12:45
DX: G40.909 Epilepsy, unspecified, not intractable, without status epilepticus (principal); N39.0 Urinary tract infection, site not specified; D64.9 Anemia, unspecified; E87.6 Hypokalemia; D72.819 Decreased white blood cell count, unspecified; I48.91 Unspecified atrial fibrillation; F03.90 Unspecified dementia, unspecified severity, without behavioral disturbance, psychotic disturbance, mood disturbance, and anxiety; I11.9 Hypertensive heart disease without heart failure; E78.00 Pure hypercholesterolemia, unspecified; Z88.6 Allergy status to analgesic agent; Z93.1 Gastrostomy status; Z79.82 Long term (current) use of aspirin; Z86.73 Personal history of transient ischemic attack (TIA), and cerebral infarction without residual deficits
CPT/HCPCS: 36415; 80053; 80185; 80305; 80320; 81003; 85025; 87086; 96365; 96375; 99283; J0696; J1953; G0480

== ENCOUNTER 2019-02-09 22:23 | Inpatient (IN) | payer MEDICARE, MEDICAID ==
[~2019-02-09] VITALS: Ht 177.8 cm; Wt 86.2 kg
[2019-02-09] MEDS ORDERED: ONDANSETRON HCL 4MG/2ML INJ IV STA (23:04)
[2019-02-09] MEDS ORDERED: SODIUM CHLORIDE 0.9% 1,000 ML IV ONE (23:04)
[2019-02-09] MEDS ORDERED: FAMOTIDINE 20MG/2ML VIAL IV STA (23:04)
[2019-02-09 23:53] LABS: BASOPHILS % 0.3 % (0.0-2.0); EOSINOPHILS % 0.2 % (0.0-5.0); HEMATOCRIT. 41.3 % (42.0-52.0); HEMOGLOBIN. 13.3 g/dL (14.0-18.0); LYMPHOCYTES % 11.8 % (20.0-50.0); MEAN CORPUSCULAR HEMOGLOBIN 27.8 pg (28.0-32.0); MEAN CORPUSCULAR VOLUME 86.8 fL (80.0-94.0); MEAN PLATELET VOLUME 9.1 fl (7.4-10.4); NEUTROPHILS % 75.7 % (40.0-76.0); PLATELET 263 x1000/uL (130-400); RED BLOOD CELL COUNT 4.76 mill/uL (4.7-6.1)
[2019-02-09 23:59] LABS: CHLORIDE 111 mEq/L (98-107)
[2019-02-10] MEDS ORDERED: LORAZEPAM 2MG/ML CPJ IV ONE
[2019-02-10 00:01] LABS: INR 1.1
[2019-02-10 00:26] LABS: CLARITY URINE CLOUDY (CLEAR); COLOR URINE DARK YELLOW (YELLOW); KETONES URINE TRACE (NEGATIVE); LEUKOCYTE ESTERASE URINE TRACE (NEGATIVE); NITRITE URINE NEGATIVE (NEGATIVE); OCCULT BLOOD URINE NEGATIVE (NEGATIVE); PROTEIN URINE 1+ (NEGATIVE); SPECIFIC GRAVITY URINE 1.026 (1.005-1.030)
[2019-02-10 06:10] VITALS: BP 114/75
[2019-02-10 08:23] VITALS: BP 104/71
[2019-02-10] MEDS ORDERED: LORAZEPAM 0.5MG TABLET PO PRN (09:45)
[2019-02-10] MEDS ORDERED: DOCUSATE SODIUM 100MG CAPSULE PO PRN (09:45)
[2019-02-10] MEDS ORDERED: IPRATROPIUM/ALBUTEROL 0.5-3(2.5)MG/3ML NEB HHN PRN (09:45)
[2019-02-10] MEDS ORDERED: HYDROCODONE/ACETAMINOPHEN 5/325MG TABLET PO PRN (09:45)
[2019-02-10] MEDS ORDERED: CLONIDINE 0.1MG TABLET PO PRN (09:45)
[2019-02-10 09:51] VITALS: BP 104/80
[2019-02-10] MEDS ORDERED: PANTOPRAZOLE 40MG DR TABLET PO SCH (10:00)
[2019-02-10] MEDS ORDERED: MEDICATION NOT ON FORMULARY EA (Levetiracetam (Keppra) 1 TAB) GT SCH (10:45)
[2019-02-10] MEDS ORDERED: ONDANSETRON HCL 4MG/2ML INJ IV PRN (11:00)
[2019-02-10] MEDS ORDERED: LEVETIRACETAM 500MG TABLET PO SCH (11:00)
[2019-02-10] MEDS ORDERED: LORAZEPAM 2MG/ML CPJ IV PRN (11:15)
[2019-02-10 12:15] VITALS: BP 103/67
[2019-02-10] MEDS ORDERED: PHENYTOIN SODIUM EXTENDED 100MG CAPSULE PO SCH (13:00)
[2019-02-10] MEDS: DEXT 5%/0.45% NACL 1000ML 1,000 ML IV SCH (13:08)
[2019-02-10] MEDS: PHENYTOIN 100 MG/4 ML UDC GT SCH ×2 (13:18→16:05)
[2019-02-10] MEDS: LEVETIRACETAM 500MG/5ML CUP GT SCH ×2 (13:18→21:49)
[2019-02-10 16:08] VITALS: BP 110/60
[2019-02-10] MEDS ORDERED: DOCUSATE SODIUM 100MG CAPSULE PO SCH (17:30)
[2019-02-10] MEDS ORDERED: DOCUSATE SODIUM SUGAR FREE 100MG/10ML UDC NG SCH (18:00)
[2019-02-10] MEDS: DOCUSATE SODIUM SUGAR FREE 100MG/10ML UDC GT SCH (18:44)
[2019-02-10 19:00] LABS: HEMATOCRIT. 36.6 % (42.0-52.0); HEMOGLOBIN. 11.8 g/dL (14.0-18.0); MEAN CORPUSCULAR VOLUME 87.1 fL (80.0-94.0); MEAN PLATELET VOLUME 8.8 fl (7.4-10.4); PLATELET 245 x1000/uL (130-400); RED CELL DISTRIBUTION WIDTH 16.8 % (11.6-14.6)
[2019-02-10 19:07] LABS: CHLORIDE 115 mEq/L (98-107)
[2019-02-10 19:43] LABS: PLATELET ESTIMATE NORMAL
[2019-02-10 20:00] VITALS: BP 102/73
[2019-02-11] VITALS (7 sets, daily range): BP systolic 104–114; BP diastolic 63–77
[2019-02-11] MEDS: DEXT 5%/0.45% NACL 1000ML 1,000 ML IV SCH ×2 (00:17→13:40)
[2019-02-11] MEDS ORDERED: DOCUSATE SODIUM SUGAR FREE 100MG/10ML UDC GT SCH (09:00)
[2019-02-11] MEDS: DOCUSATE SODIUM SUGAR FREE 100MG/10ML UDC GT SCH ×2 (09:19→16:32)
[2019-02-11] MEDS: PHENYTOIN 100 MG/4 ML UDC GT SCH ×3 (09:19→16:32)
[2019-02-11] MEDS: LEVETIRACETAM 500MG/5ML CUP GT SCH ×2 (09:19→20:52)
[2019-02-11] MEDS: LORAZEPAM 2MG/ML CPJ IV PRN (10:24)
[2019-02-11 10:40] LABS: BASOPHILS % 0.5 % (0.0-2.0); HEMATOCRIT. 36.4 % (42.0-52.0); HEMOGLOBIN. 11.5 g/dL (14.0-18.0); LYMPHOCYTES % 21.2 % (20.0-50.0); MEAN CORPUSCULAR HEMOGLOBIN 27.7 pg (28.0-32.0); MEAN CORPUSCULAR VOLUME 87.4 fL (80.0-94.0); MEAN PLATELET VOLUME 9.8 fl (7.4-10.4); MONOCYTES % 15.1 % (2.0-8.0); NEUTROPHILS % 61.2 % (40.0-76.0); PLATELET 235 x1000/uL (130-400); RED BLOOD CELL COUNT 4.16 mill/uL (4.7-6.1); RED CELL DISTRIBUTION WIDTH 16.6 % (11.6-14.6)
[2019-02-11 10:46] LABS: CHLORIDE 114 mEq/L (98-107)
[2019-02-11] MEDS: ONDANSETRON HCL 4MG/2ML INJ IV PRN (17:13)
[2019-02-12] VITALS: BP 117/74
[2019-02-12] MEDS: DEXT 5%/0.45% NACL 1000ML 1,000 ML IV SCH (03:08)
[2019-02-12 04:00] VITALS: BP 112/71
[2019-02-12 08:00] VITALS: BP 113/77
[2019-02-12] MEDS: LORAZEPAM 2MG/ML CPJ IV PRN (09:16)
[2019-02-12] MEDS: PHENYTOIN 100 MG/4 ML UDC GT SCH (09:16)
[2019-02-12] MEDS: DOCUSATE SODIUM SUGAR FREE 100MG/10ML UDC GT SCH ×2 (09:17→19:00)
[2019-02-12] MEDS: LEVETIRACETAM 500MG/5ML CUP GT SCH ×2 (09:24→21:48)
[2019-02-12 12:00] VITALS: BP 114/75
[2019-02-12] MEDS ORDERED: PHENYTOIN SODIUM 1,000 MG in SODIUM CHLORIDE 0.9% 100 ML IV NR (15:30)
[2019-02-12] MEDS: PHENYTOIN SODIUM 100MG/2ML VIAL IV SCH ×2 (15:56→21:48)
[2019-02-12 16:00] VITALS: BP 108/63
[2019-02-12 20:00] VITALS: BP 107/76
[2019-02-13] VITALS: BP 106/73
[2019-02-13 04:00] VITALS: BP 104/65
[2019-02-13] MEDS: PHENYTOIN SODIUM 100MG/2ML VIAL IV SCH ×3 (05:05→21:10)
[2019-02-13 08:17] VITALS: BP 121/75
[2019-02-13] MEDS: LORAZEPAM 2MG/ML CPJ IV PRN (08:54)
[2019-02-13] MEDS: ACETAMINOPHEN 325MG TABLET PO PRN ×2 (08:55→21:10)
[2019-02-13] MEDS: DOCUSATE SODIUM SUGAR FREE 100MG/10ML UDC GT SCH ×2 (09:01→18:16)
[2019-02-13] MEDS: LEVETIRACETAM 500MG/5ML CUP GT SCH ×2 (09:02→21:09)
[2019-02-13] MEDS: ONDANSETRON HCL 4MG/2ML INJ IV PRN (09:18)
[2019-02-13 11:36] VITALS: BP 111/72
[2019-02-13 15:23] VITALS: BP 112/68
[2019-02-13 20:00] VITALS: BP 110/73
[2019-02-14] VITALS (7 sets, daily range): BP systolic 110–125; BP diastolic 62–78
[2019-02-14] MEDS: PHENYTOIN SODIUM 100MG/2ML VIAL IV SCH ×2 (05:24→09:12)
[2019-02-14] MEDS: LEVETIRACETAM 500MG/5ML CUP GT SCH (09:12)
[2019-02-14] MEDS: LORAZEPAM 2MG/ML CPJ IV PRN (09:12)
[2019-02-14] MEDS ORDERED: PHENYTOIN 100 MG/4 ML UDC NG SCH (22:00)
== END 2019-02-14 21:10 | DRG 381 ==
LOC: ER 22:23 → 6WST 02-10 03:02 → EDBEDREQ 02-10 03:26 → EDBEDREQSVC 02-10 03:26 → EDBEDREQDT 02-10 03:26 → EDBEDREQTM 02-10 03:26 → ENRESERV 02-10 04:56
PROVIDERS: ADMIT Internal Medicine; ATTEND Internal Medicine
DX: K22.11 Ulcer of esophagus with bleeding (principal); E87.2 Acidosis; K29.71 Gastritis, unspecified, with bleeding; K44.9 Diaphragmatic hernia without obstruction or gangrene; F03.90 Unspecified dementia, unspecified severity, without behavioral disturbance, psychotic disturbance, mood disturbance, and anxiety; G40.909 Epilepsy, unspecified, not intractable, without status epilepticus; F25.9 Schizoaffective disorder, unspecified; E78.00 Pure hypercholesterolemia, unspecified; I10 Essential (primary) hypertension; I48.91 Unspecified atrial fibrillation; R62.7 Adult failure to thrive; F32.9 Major depressive disorder, single episode, unspecified; Z79.899 Other long term (current) drug therapy; Z93.1 Gastrostomy status; Z86.73 Personal history of transient ischemic attack (TIA), and cerebral infarction without residual deficits; Z68.27 Body mass index [BMI] 27.0-27.9, adult; Z88.8 Allergy status to other drugs, medicaments and biological substances
CPT/HCPCS: 36415; 71045; 74018; 80048; 80185; 81003; 82542; 82962; 83605; 84134; 84484; 86850; 86900; 87077; 92610; 93970; 99291; J1165; J2060; J2405; J3490; J7030; J7050; A4315

== ENCOUNTER 2019-02-19 14:28 | Inpatient (IN) | payer MEDICARE, MEDICAID ==
[~2019-02-19] VITALS: Ht 182.9 cm; Wt 68.9 kg
[~2019-02-19 14:28] MED LIST changes: -DIPH25CA83 GT; -FENO48 PO; -IPRA3AMP9 HHN
[2019-02-19] MEDS ORDERED: LORAZEPAM 2MG/ML CPJ ONE (14:56)
[2019-02-19] MEDS ORDERED: SODIUM CHLORIDE 0.9% 1,000 ML IV ONE (14:58)
[2019-02-19] MEDS ORDERED: LORAZEPAM 2MG/ML CPJ IM STA (14:58)
[2019-02-19] MEDS ORDERED: LORAZEPAM 2MG/ML CPJ IV ONE (15:00)
[2019-02-19] MEDS ORDERED: LEVETIRACETAM 1000MG/100ML 100 ML IV ONE (15:00)
[2019-02-19 15:32] LABS: BASOPHILS % 0.4 % (0.0-2.0); EOSINOPHILS % 0.1 % (0.0-5.0); HEMATOCRIT. 39.3 % (42.0-52.0); HEMOGLOBIN. 12.7 g/dL (14.0-18.0); LYMPHOCYTES % 19.4 % (20.0-50.0); MEAN CORPUSCULAR HEMOGLOBIN 28.3 pg (28.0-32.0); MEAN CORPUSCULAR VOLUME 87.6 fL (80.0-94.0); MEAN PLATELET VOLUME 9.6 fl (7.4-10.4); MONOCYTES % 13.4 % (2.0-8.0); NEUTROPHILS % 66.7 % (40.0-76.0); PLATELET 274 x1000/uL (130-400); RED BLOOD CELL COUNT 4.49 mill/uL (4.7-6.1)
[2019-02-19 15:35] LABS: CHLORIDE 114 mEq/L (98-107)
[2019-02-19 15:39] LABS: ETHANOL BLOOD < 10 mg/dL
[2019-02-19] MEDS ORDERED: PHENYTOIN SODIUM 1,000 MG in SODIUM CHLORIDE 0.9% 100 ML IV ONE (18:15)
[2019-02-20] VITALS (13 sets, daily range): BP systolic 100–117; BP diastolic 64–83
[2019-02-20] MEDS ORDERED: ONDANSETRON HCL 4MG/2ML INJ IV PRN (02:00)
[2019-02-20] MEDS ORDERED: LORAZEPAM 2MG/ML CPJ IV PRN (02:00)
[2019-02-20 06:39] LABS: BASOPHILS % 0.7 % (0.0-2.0); EOSINOPHILS % 0.9 % (0.0-5.0); HEMATOCRIT. 36.5 % (42.0-52.0); HEMOGLOBIN. 11.6 g/dL (14.0-18.0); LYMPHOCYTES % 27.5 % (20.0-50.0); MEAN CORPUSCULAR HEMOGLOBIN 28.2 pg (28.0-32.0); MEAN CORPUSCULAR VOLUME 88.7 fL (80.0-94.0); MEAN PLATELET VOLUME 9.7 fl (7.4-10.4); MONOCYTES % 13.6 % (2.0-8.0); NEUTROPHILS % 57.3 % (40.0-76.0); PLATELET 234 x1000/uL (130-400); RED BLOOD CELL COUNT 4.12 mill/uL (4.7-6.1); RED CELL DISTRIBUTION WIDTH 16.6 % (11.6-14.6)
[2019-02-20 07:06] LABS: CHLORIDE 116 mEq/L (98-107)
[2019-02-20] MEDS: LEVETIRACETAM 500MG/5ML CUP GT SCH ×2 (08:48→20:18)
[2019-02-20] MEDS: MULTIVITAMINS,THER W-MINERALS TABLET GT SCH (08:49)
[2019-02-20] MEDS: PHENYTOIN 100 MG/4 ML UDC GT SCH ×3 (08:49→16:16)
[2019-02-20] MEDS: ASPIRIN 81MG TABLET GT SCH (08:49)
[2019-02-20] MEDS: TAMSULOSIN HCL 0.4MG SR CAPSULE PO SCH (08:49)
[2019-02-20] MEDS: BENZTROPINE MESYLATE 1MG TABLET NG SCH ×2 (08:49→16:16)
[2019-02-20] MEDS ORDERED: BENZTROPINE MESYLATE 1MG/1ML 2ML AMP IV SCH (09:00)
[2019-02-20] MEDS: DEXTROSE 5% WATER 1,000 ML IV SCH ×2 (12:12→20:17)
[2019-02-20] MEDS: ACETAMINOPHEN 650MG/20.3ML UDC GT PRN (14:43)
[2019-02-20] MEDS ORDERED: TRAMADOL 50MG TABLET PO PRN (15:15)
[2019-02-21] VITALS (12 sets, daily range): BP systolic 103–152; BP diastolic 59–79
[2019-02-21] MEDS: DEXTROSE 5% WATER 1,000 ML IV SCH ×2 (06:22→14:50)
[2019-02-21 06:55] LABS: BASOPHILS % 0.3 % (0.0-2.0); EOSINOPHILS % 3.4 % (0.0-5.0); HEMATOCRIT. 34.6 % (42.0-52.0); LYMPHOCYTES % 24.4 % (20.0-50.0); MEAN CORPUSCULAR HEMOGLOBIN 28.1 pg (28.0-32.0); MEAN CORPUSCULAR VOLUME 88.1 fL (80.0-94.0); MEAN PLATELET VOLUME 10.2 fl (7.4-10.4); MONOCYTES % 14.7 % (2.0-8.0); NEUTROPHILS % 57.2 % (40.0-76.0); PLATELET 199 x1000/uL (130-400); RED BLOOD CELL COUNT 3.93 mill/uL (4.7-6.1); RED CELL DISTRIBUTION WIDTH 16.4 % (11.6-14.6)
[2019-02-21 07:37] LABS: CHLORIDE 113 mEq/L (98-107)
[2019-02-21 07:43] LABS: PHOSPHORUS 2.1 mg/dL (2.5-4.9)
[2019-02-21] MEDS ORDERED: POTASSIUM CHLORIDE 20MEQ/PACKET GT SCH (09:00)
[2019-02-21] MEDS: MULTIVITAMINS,THER W-MINERALS TABLET GT SCH (10:07)
[2019-02-21] MEDS: PHENYTOIN 100 MG/4 ML UDC GT SCH (10:07)
[2019-02-21] MEDS: BENZTROPINE MESYLATE 1MG TABLET NG SCH ×2 (10:07→17:13)
[2019-02-21] MEDS: LEVETIRACETAM 500MG/5ML CUP GT SCH ×2 (10:07→21:47)
[2019-02-21] MEDS: ASPIRIN 81MG TABLET GT SCH (10:07)
[2019-02-21] MEDS: TAMSULOSIN HCL 0.4MG SR CAPSULE PO SCH (10:08)
[2019-02-21] MEDS ORDERED: PHENYTOIN SODIUM 700 MG in SODIUM CHLORIDE 0.9% 100 ML IV SCH (12:00)
[2019-02-21] MEDS ORDERED: POTASSIUM-SODIUM PHOSPHATE POWDER PACKET PO NR (13:30)
[2019-02-21] MEDS ORDERED: PHENYTOIN 100 MG/4 ML UDC GT SCH (17:00)
[2019-02-22] VITALS (9 sets, daily range): BP systolic 119–151; BP diastolic 45–96
[2019-02-22] MEDS: DEXTROSE 5% WATER 1,000 ML IV SCH ×2 (04:43→16:01)
[2019-02-22 07:05] LABS: CHLORIDE 108 mEq/L (98-107)
[2019-02-22 07:16] LABS: BASOPHILS % 0.4 % (0.0-2.0); EOSINOPHILS % 4.1 % (0.0-5.0); HEMATOCRIT. 35.1 % (42.0-52.0); HEMOGLOBIN. 11.3 g/dL (14.0-18.0); LYMPHOCYTES % 29.2 % (20.0-50.0); MEAN CORPUSCULAR HEMOGLOBIN 28.1 pg (28.0-32.0); MEAN CORPUSCULAR VOLUME 87.1 fL (80.0-94.0); MEAN PLATELET VOLUME 10.8 fl (7.4-10.4); MONOCYTES % 11.4 % (2.0-8.0); NEUTROPHILS % 54.9 % (40.0-76.0); PLATELET 207 x1000/uL (130-400); RED BLOOD CELL COUNT 4.03 mill/uL (4.7-6.1)
[2019-02-22] MEDS ORDERED: POTASSIUM CHLORIDE 20MEQ TABLET SR PO NR (08:30)
[2019-02-22] MEDS: LEVETIRACETAM 500MG/5ML CUP GT SCH (09:44)
[2019-02-22] MEDS: TAMSULOSIN HCL 0.4MG SR CAPSULE PO SCH (09:44)
[2019-02-22] MEDS: ACETAMINOPHEN 650MG/20.3ML UDC GT PRN (09:44)
[2019-02-22] MEDS: BENZTROPINE MESYLATE 1MG TABLET NG SCH ×2 (09:45→16:05)
[2019-02-22] MEDS: ASPIRIN 81MG TABLET GT SCH (09:45)
[2019-02-22] MEDS: MULTIVITAMINS,THER W-MINERALS TABLET GT SCH (09:46)
[2019-02-22] MEDS ORDERED: PHENYTOIN SODIUM EXTENDED 100MG CAPSULE PO SCH (14:00)
== END 2019-02-22 17:53 | DRG 101 ==
LOC: ER 14:28 → ENRESERV 22:55 → 5EST 02-20 01:59
PROVIDERS: ADMIT Internal Medicine Nephrology; ATTEND Internal Medicine Nephrology
PROC: 02HV33Z Insertion of Infusion Device into Superior Vena Cava, Percutaneous Approach (ICD-10-PCS; 2019-02-20)
PROC: B548ZZA Ultrasonography of Superior Vena Cava, Guidance (ICD-10-PCS; 2019-02-20)
PROC: 4A00X4Z Measurement of Central Nervous Electrical Activity, External Approach (ICD-10-PCS; principal; 2019-02-22)
DX: G40.409 Other generalized epilepsy and epileptic syndromes, not intractable, without status epilepticus (principal); E44.1 Mild protein-calorie malnutrition; E87.0 Hyperosmolality and hypernatremia; E86.9 Volume depletion, unspecified; E83.52 Hypercalcemia; I10 Essential (primary) hypertension; I25.10 Atherosclerotic heart disease of native coronary artery without angina pectoris; F20.9 Schizophrenia, unspecified; D64.9 Anemia, unspecified; F03.90 Unspecified dementia, unspecified severity, without behavioral disturbance, psychotic disturbance, mood disturbance, and anxiety; R26.9 Unspecified abnormalities of gait and mobility; R74.0 Nonspecific elevation of levels of transaminase and lactic acid dehydrogenase [LDH]; E78.00 Pure hypercholesterolemia, unspecified; E78.5 Hyperlipidemia, unspecified; N40.0 Benign prostatic hyperplasia without lower urinary tract symptoms; F32.9 Major depressive disorder, single episode, unspecified; Z88.8 Allergy status to other drugs, medicaments and biological substances; Z79.82 Long term (current) use of aspirin; Z79.899 Other long term (current) drug therapy; Z68.20 Body mass index [BMI] 20.0-20.9, adult; Z91.14 Patient's other noncompliance with medication regimen
CPT/HCPCS: 36415; 71045; 73130; 76937; 80048; 80076; 80185; 80320; 82962; 83735; 84100; 84484; 93005; 93970; 99291; C1725; C1893; J1165; J1953; J2060; J7030; J7050; J7070; G0480

== ENCOUNTER 2019-04-25 20:54 | Inpatient (IN) | payer MEDICARE, MEDICAID ==
[~2019-04-25] VITALS: Ht 177.8 cm; Wt 71.7 kg
[~2019-04-25 20:54] MED LIST changes: -ACET-2853 GT; +ACET650T37 GT
[2019-04-25] MEDS ORDERED: PANTOPRAZOLE SODIUM 40 MG/VIAL IV ONE (21:15)
[2019-04-25] MEDS ORDERED: PIPERACILLIN/TAZ 3.375G PREMIX 50 ML IV ONE (21:30)
[2019-04-25] MEDS ORDERED: SODIUM CHLORIDE 0.9% 1000ML BAG (SEPSIS BOLUS) IV ONE (21:30)
[2019-04-25] MEDS ORDERED: VANCOMYCIN 1 G PREMIX 200 ML IV ONE (21:30)
[2019-04-25] MEDS ORDERED: NOREPINEPHRINE 4MG/250ML PMX 250 ML IV ONE (21:45)
[2019-04-25] MEDS ORDERED: PROPOFOL 10MG/ML 100ML 100 ML IV ONE (21:45)
[2019-04-25 22:22] LABS: BASOPHILS % 0.3 % (0.0-2.0); EOSINOPHILS % 0.1 % (0.0-5.0); HEMATOCRIT. 30.2 % (42.0-52.0); HEMOGLOBIN. 9.6 g/dL (14.0-18.0); LYMPHOCYTES % 11.6 % (20.0-50.0); MEAN CORPUSCULAR VOLUME 85.5 fL (80.0-94.0); MEAN PLATELET VOLUME 11.4 fl (7.4-10.4); PLATELET 163 x1000/uL (130-400); RED BLOOD CELL COUNT 3.54 mill/uL (4.7-6.1); RED CELL DISTRIBUTION WIDTH 15.2 % (11.6-14.6)
[2019-04-25 22:29] LABS: CHLORIDE 129 mEq/L (98-107)
[2019-04-25 22:36] LABS: BG BASE EXCESS -11.8 mmol/L (-2.0-2.0); BG CARBOXYHEMOGLOBIN 0.4 % (0.5-1.5); BG DEOXYHEMOGLOBIN 0.6 % (0.0-5.0); BG FRACTION INSPIRED OXYGEN 100; BG HCO3 ACT 15.8 mmol/L (22.0-26.0); BG METHEMOGLOBIN 0.2 % (0.0-1.5); BG OXYGEN SATURATION 99.4 % (92.0-98.5); BG OXYHEMOGLOBIN 98.8 % (94.0-97.0); BG PH 7.193 (7.350-7.450); BG PO2 425.6 mmHg (75.0-100.0); BG SAMPLE SITE LEFT BRACHIAL; BG TIDAL VOLUME(mL) 550 mL; BG TOTAL HEMOGLOBIN 13.1 g/dL (12.0-18.0); BG VENT MODE VENT - A/C; BG VENT RATE 16 set
[2019-04-25 22:43] LABS: INR 1.2; PARTIAL THROMBOPLASTIN TIME 28.5 sec (23.4-31.0); PROTHROMBIN TIME 12.1 sec (9.6-11.0)
[2019-04-25] MEDS ORDERED: LEVETIRACETAM 500MG PREMIX 100 ML IV ONE (23:00)
[2019-04-25] MEDS ORDERED: SODIUM CHLORIDE 0.9% 1,000 ML IV ONE (23:19)
[2019-04-25] MEDS ORDERED: PANTOPRAZOLE 80 MG in SODIUM CHLORIDE 0.9% 100 ML IV STA (23:21)
[2019-04-26] VITALS (38 sets, daily range): BP systolic 74–128; BP diastolic 49–82
[2019-04-26] MEDS ORDERED: NOREPINEPHRINE 4MG/250ML PMX 250 ML IV ONE ×3 (00:15→18:45)
[2019-04-26 01:08] LABS: CLARITY URINE TURBID (CLEAR); COLOR URINE DARK YELLOW (YELLOW); KETONES URINE NEGATIVE (NEGATIVE); LEUKOCYTE ESTERASE URINE 2+ (NEGATIVE); NITRITE URINE NEGATIVE (NEGATIVE); OCCULT BLOOD URINE 3+ (NEGATIVE); PROTEIN URINE 3+ (NEGATIVE); SPECIFIC GRAVITY URINE 1.017 (1.005-1.030)
[2019-04-26] MEDS ORDERED: NOREPINEPHRINE 4MG/250ML PMX 250 ML IV PRN (04:45)
[2019-04-26] MEDS ORDERED: PROPOFOL 10MG/ML 100ML 100 ML IV PRN (04:45)
[2019-04-26 10:23] LABS: BASOPHILS % 0.2 % (0.0-2.0); EOSINOPHILS % 0.1 % (0.0-5.0); HEMATOCRIT. 48.2 % (42.0-52.0); HEMOGLOBIN. 15.7 g/dL (14.0-18.0); LYMPHOCYTES % 16.3 % (20.0-50.0); MEAN CORPUSCULAR VOLUME 85.7 fL (80.0-94.0); MONOCYTES % 3.1 % (2.0-8.0); NEUTROPHILS % 80.3 % (40.0-76.0); RED BLOOD CELL COUNT 5.63 mill/uL (4.7-6.1); RED CELL DISTRIBUTION WIDTH 16.4 % (11.6-14.6)
[2019-04-26 10:42] LABS: BG BASE EXCESS -2.5 mmol/L (-2.0-2.0); BG CARBOXYHEMOGLOBIN 0.7 % (0.5-1.5); BG DEOXYHEMOGLOBIN 1.6 % (0.0-5.0); BG FRACTION INSPIRED OXYGEN 50; BG HCO3 ACT 22.1 mmol/L (22.0-26.0); BG METHEMOGLOBIN 0.1 % (0.0-1.5); BG OXYGEN SATURATION 98.4 % (92.0-98.5); BG OXYHEMOGLOBIN 97.6 % (94.0-97.0); BG PCO2 38.1 mmHg (35.0-45.0); BG PH 7.382 (7.350-7.450); BG PO2 136.5 mmHg (75.0-100.0); BG SAMPLE SITE RIGHT RADIAL; BG TIDAL VOLUME(mL) 550 mL; BG VENT MODE VENT - A/C; BG VENT RATE 16 set
[2019-04-26 10:56] LABS: MEAN PLATELET VOLUME 11.2 fl (7.4-10.4); PLATELET 100 x1000/uL (130-400)
[2019-04-26] MEDS ORDERED: SODIUM BICARBONATE 100 MEQ in DEXTROSE 5% WATER 1,000 ML IV SCH (11:00)
[2019-04-26] MEDS ORDERED: HEPARIN 1000 UNITS/ML 10ML ONE (11:12)
[2019-04-26 11:46] LABS: PLATELET ESTIMATE DECREASED
[2019-04-26 11:59] LABS: INR 1.1; PROTHROMBIN TIME 11.6 sec (9.6-11.0)
[2019-04-26] MEDS: PHYTONADIONE 10MG/ML AMP SUBCUT NR ×3 (12:15→14:13)
[2019-04-26] MEDS ORDERED: PANTOPRAZOLE SODIUM 40 MG/VIAL IV NR (12:15)
[2019-04-26] MEDS ORDERED: PHENYTOIN SODIUM 1000MG in SODIUM CHLORIDE 0.9% 100ML IV NR (12:30)
[2019-04-26] MEDS ORDERED: CEFTRIAXONE 1GM PREMIX 50ML IV SCH (12:30)
[2019-04-26] MEDS ORDERED: NOREPINEPHRINE 4 MG in DEXT 5% WATER 250 ML IV PRN (15:15)
[2019-04-26] MEDS ORDERED: NOREPINEPHRINE 4 MG in DEXT 5% WATER 246 ML IV PRN (15:15)
[2019-04-26] MEDS ORDERED: SODIUM POLYSTYRENE SULFONATE 15 G/60 ML BOT PO NR (16:30)
[2019-04-26] MEDS: NOREPINEPHRINE 4 MG in DEXT 5% WATER 250 ML IV PRN ×2 (18:55→23:52)
[2019-04-26] MEDS: DEXT 5%/0.45% NACL 1000ML 1,000 ML IV SCH (18:55)
[2019-04-26 19:52] LABS: HEMATOCRIT 40.8 % (42.0-52.0); HEMOGLOBIN 13.3 g/dL (14.0-18.0)
[2019-04-26] MEDS ORDERED: CEFTRIAXONE 1 G PREMIX 50 ML IV SCH (21:00)
[2019-04-26] MEDS: LEVETIRACETAM 500MG/5ML CUP PO SCH (22:09)
[2019-04-27] VITALS (74 sets, daily range): BP systolic 76–124; BP diastolic 41–77
[2019-04-27] MEDS ORDERED: PROPOFOL 10MG/ML 100ML 100 ML IV PRN ×2 (01:15→16:45)
[2019-04-27 04:28] LABS: HEMATOCRIT 40.2 % (42.0-52.0); HEMOGLOBIN 13.3 g/dL (14.0-18.0); MEAN CORPUSCULAR HEMOGLOBIN 27.7 pg (28.0-32.0); MEAN CORPUSCULAR VOLUME 83.7 fL (80.0-94.0); PLATELET 115 x1000/uL (130-400); RED CELL DISTRIBUTION WIDTH 16.6 % (11.6-14.6)
[2019-04-27] MEDS: NOREPINEPHRINE 4 MG in DEXT 5% WATER 250 ML IV PRN (04:39)
[2019-04-27] MEDS: DEXT 5%/0.45% NACL 1000ML 1,000 ML IV SCH (05:46)
[2019-04-27] MEDS ORDERED: POTASSIUM CHLORIDE 20MEQ/PACKET GT SCH (08:00)
[2019-04-27] MEDS: PANTOPRAZOLE SODIUM 40 MG/VIAL IV SCH (09:33)
[2019-04-27] MEDS: LEVETIRACETAM 500MG/5ML CUP PO SCH ×2 (09:34→21:00)
[2019-04-27] MEDS: DEXTROSE 5% WATER 1,000 ML IV SCH (09:34)
[2019-04-27] MEDS ORDERED: VANCOMYCIN 1500MG in DEXTROSE 5% WATER 250ML IV SCH (11:00)
[2019-04-27] MEDS ORDERED: CEFEPIME 1,000 MG in DEXTROSE 5% WATER 50 ML IV SCH (11:45)
[2019-04-27] MEDS: CEFEPIME 500 MG in DEXTROSE 5% WATER 50 ML IV SCH (15:16)
[2019-04-27] MEDS ORDERED: IPRATROPIUM/ALBUTEROL 0.5-3(2.5)MG/3ML NEB HHN PRN (16:45)
[2019-04-27] MEDS: IPRATROPIUM/ALBUTEROL 0.5-3(2.5)MG/3ML NEB HHN SCH (21:20)
[2019-04-27] MEDS: METOCLOPRAMIDE HCL 10MG/2ML VIAL IV SCH (22:00)
[2019-04-28] VITALS (40 sets, daily range): BP systolic 86–127; BP diastolic 51–67
[2019-04-28] MEDS: DEXTROSE 5% WATER 1,000 ML IV SCH ×2 (00:08→09:36)
[2019-04-28] MEDS: IPRATROPIUM/ALBUTEROL 0.5-3(2.5)MG/3ML NEB HHN SCH ×5 (02:28→20:43)
[2019-04-28] MEDS: METOCLOPRAMIDE HCL 10MG/2ML VIAL IV SCH ×2 (06:00→14:21)
[2019-04-28 06:18] LABS: BASOPHILS % 0.3 % (0.0-2.0); EOSINOPHILS % 0.8 % (0.0-5.0); HEMATOCRIT. 33.7 % (42.0-52.0); HEMOGLOBIN. 11.4 g/dL (14.0-18.0); LYMPHOCYTES % 7.2 % (20.0-50.0); MEAN CORPUSCULAR HEMOGLOBIN 28.1 pg (28.0-32.0); MEAN PLATELET VOLUME 11.4 fl (7.4-10.4); MONOCYTES % 4.2 % (2.0-8.0); NEUTROPHILS % 87.5 % (40.0-76.0); PLATELET 124 x1000/uL (130-400); RED BLOOD CELL COUNT 4.06 mill/uL (4.7-6.1); RED CELL DISTRIBUTION WIDTH 16.4 % (11.6-14.6)
[2019-04-28 06:39] LABS: PHOSPHORUS 3.6 mg/dL (2.5-4.9)
[2019-04-28] MEDS ORDERED: POTASSIUM CHLORIDE 20MEQ/PACKET PO NR (07:30)
[2019-04-28] MEDS ORDERED: KCL 20MEQ/100ML PREMIX 100 ML IV SCH (08:00)
[2019-04-28] MEDS ORDERED: POTASSIUM CHLORIDE INJ 40 MEQ in DEXT 5% WATER 250 ML IV NR (08:30)
[2019-04-28] MEDS: LEVETIRACETAM 500MG/5ML CUP PO SCH ×2 (09:35→21:44)
[2019-04-28] MEDS: PANTOPRAZOLE SODIUM 40 MG/VIAL IV SCH (09:35)
[2019-04-28 11:02] LABS: BG BASE EXCESS -4.7 mmol/L (-2.0-2.0); BG CARBOXYHEMOGLOBIN 0.3 % (0.5-1.5); BG DEOXYHEMOGLOBIN 2.5 % (0.0-5.0); BG FRACTION INSPIRED OXYGEN 40; BG HCO3 ACT 18.8 mmol/L (22.0-26.0); BG METHEMOGLOBIN 0.2 % (0.0-1.5); BG OXYGEN SATURATION 97.5 % (92.0-98.5); BG PCO2 29.8 mmHg (35.0-45.0); BG PH 7.418 (7.350-7.450); BG PO2 106.5 mmHg (75.0-100.0); BG PRESSURE SUPPORT 12; BG SAMPLE SITE RIGHT BRACHIAL; BG TIDAL VOLUME(mL) 500 mL; BG TOTAL HEMOGLOBIN 10.8 g/dL (12.0-18.0); BG VENT MODE VENT - SIMV; BG VENT RATE 8 set
[2019-04-28] MEDS: PHENYTOIN SODIUM 100MG/2ML VIAL IV SCH ×2 (14:21→21:44)
[2019-04-28] MEDS: CEFEPIME 500 MG in DEXTROSE 5% WATER 50 ML IV SCH (14:21)
[2019-04-28] MEDS: ACETYLCYSTEINE 100MG/ML 10% VIAL 4ML INH SCH (16:12)
[2019-04-29] VITALS (27 sets, daily range): BP systolic 101–134; BP diastolic 58–87
[2019-04-29] MEDS: IPRATROPIUM/ALBUTEROL 0.5-3(2.5)MG/3ML NEB HHN SCH ×6 (00:24→19:55)
[2019-04-29] MEDS: ACETYLCYSTEINE 100MG/ML 10% VIAL 4ML INH SCH ×3 (00:24→15:47)
[2019-04-29] MEDS: METOCLOPRAMIDE HCL 10MG/2ML VIAL IV SCH ×4 (06:00→22:10)
[2019-04-29] MEDS: PHENYTOIN SODIUM 100MG/2ML VIAL IV SCH ×3 (07:26→22:20)
[2019-04-29 07:51] LABS: HEMATOCRIT. 32.3 % (42.0-52.0); HEMOGLOBIN. 10.9 g/dL (14.0-18.0); MEAN CORPUSCULAR HEMOGLOBIN 28.4 pg (28.0-32.0); MEAN CORPUSCULAR VOLUME 84.5 fL (80.0-94.0); MEAN PLATELET VOLUME 10.7 fl (7.4-10.4); PLATELET 142 x1000/uL (130-400); RED BLOOD CELL COUNT 3.83 mill/uL (4.7-6.1); RED CELL DISTRIBUTION WIDTH 16.2 % (11.6-14.6)
[2019-04-29 08:00] LABS: BG BASE EXCESS -5.7 mmol/L (-2.0-2.0); BG CARBOXYHEMOGLOBIN 1.3 % (0.5-1.5); BG DEOXYHEMOGLOBIN 1.7 % (0.0-5.0); BG FRACTION INSPIRED OXYGEN 40; BG HCO3 ACT 19.6 mmol/L (22.0-26.0); BG METHEMOGLOBIN 0.1 % (0.0-1.5); BG OXYGEN SATURATION 98.3 % (92.0-98.5); BG OXYHEMOGLOBIN 96.9 % (94.0-97.0); BG PCO2 37.6 mmHg (35.0-45.0); BG PH 7.334 (7.350-7.450); BG PO2 106.5 mmHg (75.0-100.0); BG PRESSURE SUPPORT 12; BG SAMPLE SITE RIGHT BRACHIAL; BG TIDAL VOLUME(mL) 500 mL; BG TOTAL HEMOGLOBIN 11.7 g/dL (12.0-18.0); BG VENT MODE VENT - SIMV; BG VENT RATE 8 set
[2019-04-29 08:16] LABS: T4 FREE 0.89 ng/dL (0.76-1.46)
[2019-04-29] MEDS: PANTOPRAZOLE SODIUM 40 MG/VIAL IV SCH (08:58)
[2019-04-29] MEDS: LEVETIRACETAM 500MG/5ML CUP PO SCH (08:58)
[2019-04-29] MEDS: MUPIROCIN 2% OINT 22GM NS SCH ×2 (09:00→21:20)
[2019-04-29] MEDS ORDERED: KCL 20MEQ/100ML PREMIX 100 ML IV NR (09:30)
[2019-04-29 10:34] LABS: PLATELET ESTIMATE NORMAL
[2019-04-29] MEDS: MEROPENEM 500MG in NORMAL SALINE 50ML IV SCH (16:00)
[2019-04-29] MEDS ORDERED: PHENYTOIN SODIUM 700 MG in SODIUM CHLORIDE 0.9% 100 ML IV NR (18:00)
[2019-04-29] MEDS ORDERED: VANCOMYCIN 750 MG PREMIX 150 ML IV SCH (21:00)
[2019-04-29] MEDS: LEVETIRACETAM 1000MG/100ML 100 ML IV SCH (21:20)
[2019-04-29] MEDS ORDERED: MORPHINE SULFATE 2 MG/ML CPJ (NOT FOR IM USE) IV PRN (21:22)
[2019-04-30] VITALS (42 sets, daily range): BP systolic 101–130; BP diastolic 58–75
[2019-04-30] MEDS: IPRATROPIUM/ALBUTEROL 0.5-3(2.5)MG/3ML NEB HHN SCH ×3 (00:06→08:22)
[2019-04-30] MEDS: ACETYLCYSTEINE 100MG/ML 10% VIAL 4ML INH SCH ×3 (00:06→16:30)
[2019-04-30 05:13] LABS: HEMATOCRIT. 36.2 % (42.0-52.0); HEMOGLOBIN. 11.9 g/dL (14.0-18.0); MEAN CORPUSCULAR HEMOGLOBIN 27.9 pg (28.0-32.0); MEAN CORPUSCULAR VOLUME 84.9 fL (80.0-94.0); MEAN PLATELET VOLUME 10.1 fl (7.4-10.4); PLATELET 181 x1000/uL (130-400); RED BLOOD CELL COUNT 4.27 mill/uL (4.7-6.1); RED CELL DISTRIBUTION WIDTH 16.1 % (11.6-14.6)
[2019-04-30] MEDS: METOCLOPRAMIDE HCL 10MG/2ML VIAL IV SCH ×3 (06:21→21:12)
[2019-04-30] MEDS: PHENYTOIN SODIUM 100MG/2ML VIAL IV SCH ×3 (06:21→21:12)
[2019-04-30 07:39] LABS: PLATELET ESTIMATE NORMAL
[2019-04-30] MEDS: PANTOPRAZOLE SODIUM 40 MG/VIAL IV SCH (08:49)
[2019-04-30] MEDS: LEVETIRACETAM 1000MG/100ML 100 ML IV SCH ×2 (08:49→20:55)
[2019-04-30] MEDS: MUPIROCIN 2% OINT 22GM NS SCH ×2 (08:50→20:55)
[2019-04-30 10:00] LABS: BG BASE EXCESS -2.6 mmol/L (-2.0-2.0); BG CARBOXYHEMOGLOBIN 0.3 % (0.5-1.5); BG DEOXYHEMOGLOBIN 2.2 % (0.0-5.0); BG FRACTION INSPIRED OXYGEN 40; BG HCO3 ACT 22.1 mmol/L (22.0-26.0); BG METHEMOGLOBIN 0.2 % (0.0-1.5); BG OXYGEN SATURATION 97.8 % (92.0-98.5); BG OXYHEMOGLOBIN 97.3 % (94.0-97.0); BG PCO2 38.1 mmHg (35.0-45.0); BG PH 7.382 (7.350-7.450); BG PO2 111.6 mmHg (75.0-100.0); BG PRESSURE SUPPORT 8; BG SAMPLE SITE RIGHT RADIAL; BG TOTAL HEMOGLOBIN 10.7 g/dL (12.0-18.0); BG VENT MODE VENT - CPAP
[2019-04-30] MEDS: DEXTROSE 5% WATER 1,000 ML IV SCH ×2 (10:47→20:55)
[2019-04-30] MEDS: ALBUMIN HUMAN 25GM/100ML (25%) IV SCH (10:53)
[2019-04-30] MEDS ORDERED: METOCLOPRAMIDE HCL 10MG/2ML VIAL IV NR (11:30)
[2019-04-30] MEDS: ALBUTEROL (0.083%) 2.5MG/3ML NEB HHN SCH ×3 (12:50→20:23)
[2019-04-30] MEDS: MEROPENEM 500MG in NORMAL SALINE 50ML IV SCH (15:56)
[2019-04-30] MEDS ORDERED: MIDAZOLAM HCL 5 MG/5 ML VIAL ONE (18:26)
[2019-04-30] MEDS ORDERED: FENTANYL CITRATE/PF 50MCG/ML 2ML VIAL ONE (18:26)
[2019-04-30] MEDS ORDERED: MIDAZOLAM HCL 5 MG/5 ML VIAL IV PRN (18:32)
[2019-05-01] VITALS (53 sets, daily range): BP systolic 92–148; BP diastolic 57–82
[2019-05-01] MEDS: ALBUTEROL (0.083%) 2.5MG/3ML NEB HHN SCH ×6 (00:30→20:21)
[2019-05-01] MEDS: ACETYLCYSTEINE 100MG/ML 10% VIAL 4ML INH SCH ×3 (00:30→15:16)
[2019-05-01 05:39] LABS: BASOPHILS % 0.6 % (0.0-2.0); EOSINOPHILS % 1.5 % (0.0-5.0); HEMATOCRIT. 28.9 % (42.0-52.0); HEMOGLOBIN. 9.6 g/dL (14.0-18.0); MEAN CORPUSCULAR VOLUME 84.3 fL (80.0-94.0); MONOCYTES % 8.8 % (2.0-8.0); NEUTROPHILS % 80.1 % (40.0-76.0); PLATELET 234 x1000/uL (130-400); RED BLOOD CELL COUNT 3.42 mill/uL (4.7-6.1); RED CELL DISTRIBUTION WIDTH 16.1 % (11.6-14.6)
[2019-05-01] MEDS: DEXTROSE 5% WATER 1,000 ML IV SCH ×2 (05:47→18:08)
[2019-05-01] MEDS: PHENYTOIN SODIUM 100MG/2ML VIAL IV SCH ×3 (05:47→21:03)
[2019-05-01] MEDS: METOCLOPRAMIDE HCL 10MG/2ML VIAL IV SCH ×3 (05:47→21:03)
[2019-05-01 06:07] LABS: PHOSPHORUS 4.2 mg/dL (2.5-4.9)
[2019-05-01] MEDS ORDERED: POTASSIUM CHLORIDE 20MEQ/PACKET PO SCH (06:45)
[2019-05-01] MEDS: ALBUMIN HUMAN 25GM/100ML (25%) IV SCH (09:26)
[2019-05-01] MEDS: PANTOPRAZOLE SODIUM 40 MG/VIAL IV SCH (09:26)
[2019-05-01] MEDS: LEVETIRACETAM 1000MG/100ML 100 ML IV SCH ×2 (09:26→21:03)
[2019-05-01] MEDS: MUPIROCIN 2% OINT 22GM NS SCH ×2 (09:27→21:02)
[2019-05-01] MEDS: MEROPENEM 500MG in NORMAL SALINE 50ML IV SCH (16:44)
[2019-05-02] VITALS (47 sets, daily range): BP systolic 117–151; BP diastolic 66–87
[2019-05-02] MEDS: ALBUTEROL (0.083%) 2.5MG/3ML NEB HHN SCH ×6 (00:21→21:01)
[2019-05-02] MEDS: ACETYLCYSTEINE 100MG/ML 10% VIAL 4ML INH SCH ×3 (00:21→15:34)
[2019-05-02] MEDS: METOCLOPRAMIDE HCL 10MG/2ML VIAL IV SCH ×3 (05:10→21:16)
[2019-05-02] MEDS: PHENYTOIN SODIUM 100MG/2ML VIAL IV SCH ×3 (05:10→21:16)
[2019-05-02 05:48] LABS: BASOPHILS % 0.3 % (0.0-2.0); EOSINOPHILS % 1.6 % (0.0-5.0); HEMATOCRIT. 29.5 % (42.0-52.0); HEMOGLOBIN. 9.9 g/dL (14.0-18.0); LYMPHOCYTES % 10.3 % (20.0-50.0); MEAN CORPUSCULAR HEMOGLOBIN 28.5 pg (28.0-32.0); MEAN CORPUSCULAR VOLUME 84.5 fL (80.0-94.0); MEAN PLATELET VOLUME 9.8 fl (7.4-10.4); MONOCYTES % 9.9 % (2.0-8.0); NEUTROPHILS % 77.9 % (40.0-76.0); PLATELET 290 x1000/uL (130-400); RED BLOOD CELL COUNT 3.49 mill/uL (4.7-6.1); RED CELL DISTRIBUTION WIDTH 15.5 % (11.6-14.6)
[2019-05-02] MEDS ORDERED: VANCOMYCIN 750 MG PREMIX 150 ML IV SCH (06:00)
[2019-05-02 06:03] LABS: PHOSPHORUS 4.1 mg/dL (2.5-4.9)
[2019-05-02] MEDS ORDERED: POTASSIUM CHLORIDE 20MEQ/PACKET PO ONE (06:45)
[2019-05-02] MEDS: ALBUMIN HUMAN 25GM/100ML (25%) IV SCH (09:12)
[2019-05-02] MEDS: PANTOPRAZOLE SODIUM 40 MG/VIAL IV SCH (09:12)
[2019-05-02] MEDS: LEVETIRACETAM 1000MG/100ML 100 ML IV SCH ×2 (09:12→21:16)
[2019-05-02] MEDS: MUPIROCIN 2% OINT 22GM NS SCH ×2 (09:13→21:16)
[2019-05-02] MEDS: MEROPENEM 500MG in NORMAL SALINE 50ML IV SCH (15:27)
[2019-05-03] VITALS (47 sets, daily range): BP systolic 120–159; BP diastolic 68–102
[2019-05-03] MEDS: ALBUTEROL (0.083%) 2.5MG/3ML NEB HHN SCH ×6 (00:48→21:01)
[2019-05-03] MEDS: ACETYLCYSTEINE 100MG/ML 10% VIAL 4ML INH SCH ×3 (00:48→16:15)
[2019-05-03] MEDS: METOCLOPRAMIDE HCL 10MG/2ML VIAL IV SCH ×3 (05:13→21:28)
[2019-05-03] MEDS: PHENYTOIN SODIUM 100MG/2ML VIAL IV SCH ×3 (05:13→21:28)
[2019-05-03 05:59] LABS: BASOPHILS % 0.6 % (0.0-2.0); EOSINOPHILS % 1.6 % (0.0-5.0); HEMATOCRIT. 30.2 % (42.0-52.0); HEMOGLOBIN. 9.8 g/dL (14.0-18.0); LYMPHOCYTES % 8.7 % (20.0-50.0); MEAN CORPUSCULAR HEMOGLOBIN 27.4 pg (28.0-32.0); MEAN CORPUSCULAR VOLUME 84.4 fL (80.0-94.0); MEAN PLATELET VOLUME 9.6 fl (7.4-10.4); MONOCYTES % 8.4 % (2.0-8.0); NEUTROPHILS % 80.7 % (40.0-76.0); PLATELET 281 x1000/uL (130-400); RED BLOOD CELL COUNT 3.58 mill/uL (4.7-6.1)
[2019-05-03] MEDS: PANTOPRAZOLE SODIUM 40 MG/VIAL IV SCH (09:13)
[2019-05-03] MEDS: LEVETIRACETAM 1000MG/100ML 100 ML IV SCH ×2 (09:13→21:28)
[2019-05-03] MEDS: MUPIROCIN 2% OINT 22GM NS SCH ×2 (09:14→21:00)
[2019-05-03] MEDS: MEROPENEM 500MG in NORMAL SALINE 50ML IV SCH (15:12)
[2019-05-03] MEDS ORDERED: VANCOMYCIN 750 MG PREMIX 150 ML IV NR (23:00)
[2019-05-04] VITALS (13 sets, daily range): BP systolic 113–147; BP diastolic 62–111
[2019-05-04] MEDS: ALBUTEROL (0.083%) 2.5MG/3ML NEB HHN SCH ×6 (00:46→20:20)
[2019-05-04] MEDS: MORPHINE SULFATE 2 MG/ML CPJ (NOT FOR IM USE) IV PRN ×2 (04:22→13:50)
[2019-05-04] MEDS: METOCLOPRAMIDE HCL 10MG/2ML VIAL IV SCH ×3 (05:55→21:16)
[2019-05-04] MEDS: PHENYTOIN SODIUM 100MG/2ML VIAL IV SCH ×3 (05:55→21:16)
[2019-05-04] MEDS: PANTOPRAZOLE SODIUM 40 MG/VIAL IV SCH (09:00)
[2019-05-04] MEDS: LEVETIRACETAM 1,000 MG in SODIUM CHLORIDE 0.9% 100 ML IV SCH ×2 (09:55→21:00)
[2019-05-04] MEDS: DOCUSATE SODIUM SUGAR FREE 100MG/10ML UDC PEG SCH (13:42)
[2019-05-04] MEDS ORDERED: VANCOMYCIN 750 MG PREMIX 150 ML IV NR (16:00)
[2019-05-04] MEDS: MEROPENEM 500MG in NORMAL SALINE 50ML IV SCH (16:22)
[2019-05-04] MEDS: ACETYLCYSTEINE 100MG/ML 10% VIAL 4ML INH SCH (16:43)
[2019-05-05] VITALS (11 sets, daily range): BP systolic 113–136; BP diastolic 69–84
[2019-05-05] MEDS: ALBUTEROL (0.083%) 2.5MG/3ML NEB HHN SCH ×3 (00:23→12:50)
[2019-05-05] MEDS: ACETYLCYSTEINE 100MG/ML 10% VIAL 4ML INH SCH (00:23)
[2019-05-05] MEDS: PHENYTOIN SODIUM 100MG/2ML VIAL IV SCH ×2 (06:06→14:58)
[2019-05-05] MEDS: METOCLOPRAMIDE HCL 10MG/2ML VIAL IV SCH ×2 (06:07→14:58)
[2019-05-05 07:23] LABS: BASOPHILS % 0.5 % (0.0-2.0); EOSINOPHILS % 1.2 % (0.0-5.0); HEMATOCRIT. 28.1 % (42.0-52.0); HEMOGLOBIN. 9.2 g/dL (14.0-18.0); MEAN CORPUSCULAR HEMOGLOBIN 27.8 pg (28.0-32.0); MEAN CORPUSCULAR VOLUME 85.1 fL (80.0-94.0); MEAN PLATELET VOLUME 9.8 fl (7.4-10.4); MONOCYTES % 8.4 % (2.0-8.0); NEUTROPHILS % 78.9 % (40.0-76.0); PLATELET 302 x1000/uL (130-400)
[2019-05-05] MEDS: DOCUSATE SODIUM SUGAR FREE 100MG/10ML UDC PEG SCH (09:00)
[2019-05-05] MEDS: LEVETIRACETAM 1,000 MG in SODIUM CHLORIDE 0.9% 100 ML IV SCH (09:11)
[2019-05-05] MEDS: PANTOPRAZOLE SODIUM 40 MG/VIAL IV SCH (09:11)
[2019-05-05] MEDS ORDERED: DEXTROSE 5% WATER 1,000 ML IV SCH (09:15)
[2019-05-05 10:15] LABS: BG BASE EXCESS 2.4 mmol/L (-2.0-2.0); BG CARBOXYHEMOGLOBIN 0.3 % (0.5-1.5); BG DEOXYHEMOGLOBIN 4.8 % (0.0-5.0); BG FRACTION INSPIRED OXYGEN 21; BG HCO3 ACT 27.2 mmol/L (22.0-26.0); BG METHEMOGLOBIN 0.3 % (0.0-1.5); BG OXYGEN SATURATION 95.2 % (92.0-98.5); BG OXYHEMOGLOBIN 94.6 % (94.0-97.0); BG PH 7.419 (7.350-7.450); BG PO2 73.9 mmHg (75.0-100.0); BG SAMPLE SITE RIGHT RADIAL; BG TOTAL HEMOGLOBIN 9.1 g/dL (12.0-18.0); BG VENT MODE ROOM AIR
[2019-05-05] MEDS: MEROPENEM 500MG in NORMAL SALINE 50ML IV SCH (16:03)
== END 2019-05-05 18:47 | DRG 870 ==
LOC: ER 20:54 → EDBEDREQSVC 21:28 → EDBEDREQ 21:28 → EDBEDREQTM 21:28 → MICUSO 22:41 → EDBEDREQ 22:43 → EDBEDREQTM 22:43 → ENRESERV 04-26 12:24 → 3WST 05-04 00:32
PROVIDERS: ADMIT Internal Medicine; ATTEND Internal Medicine
PROC: 5A1955Z Respiratory Ventilation, Greater than 96 Consecutive Hours (ICD-10-PCS; principal; 2019-04-25)
PROC: 30233K1 Transfusion of Nonautologous Frozen Plasma into Peripheral Vein, Percutaneous Approach (ICD-10-PCS; 2019-04-25)
PROC: 30233N1 Transfusion of Nonautologous Red Blood Cells into Peripheral Vein, Percutaneous Approach (ICD-10-PCS; 2019-04-25)
PROC: 0BH18EZ Insertion of Endotracheal Airway into Trachea, Via Natural or Artificial Opening Endoscopic (ICD-10-PCS; 2019-04-25)
PROC: 06HY33Z Insertion of Infusion Device into Lower Vein, Percutaneous Approach (ICD-10-PCS; 2019-04-25)
PROC: 0DB68ZX Excision of Stomach, Via Natural or Artificial Opening Endoscopic, Diagnostic (ICD-10-PCS; 2019-04-30)
PROC: 4A00X4Z Measurement of Central Nervous Electrical Activity, External Approach (ICD-10-PCS; 2019-04-30)
DX: A41.02 Sepsis due to Methicillin resistant Staphylococcus aureus (principal); K85.90 Acute pancreatitis without necrosis or infection, unspecified; R65.21 Severe sepsis with septic shock; J96.00 Acute respiratory failure, unspecified whether with hypoxia or hypercapnia; E43 Unspecified severe protein-calorie malnutrition; N17.0 Acute kidney failure with tubular necrosis; J69.0 Pneumonitis due to inhalation of food and vomit; K22.11 Ulcer of esophagus with bleeding; K29.71 Gastritis, unspecified, with bleeding; K57.31 Diverticulosis of large intestine without perforation or abscess with bleeding; E87.2 Acidosis; E87.1 Hypo-osmolality and hyponatremia; N39.0 Urinary tract infection, site not specified; I69.359 Hemiplegia and hemiparesis following cerebral infarction affecting unspecified side; E87.0 Hyperosmolality and hypernatremia; A41.51 Sepsis due to Escherichia coli [E. coli]; E87.5 Hyperkalemia; E86.9 Volume depletion, unspecified; N18.9 Chronic kidney disease, unspecified; D64.9 Anemia, unspecified; E78.00 Pure hypercholesterolemia, unspecified; E78.5 Hyperlipidemia, unspecified; E87.6 Hypokalemia; F03.90 Unspecified dementia, unspecified severity, without behavioral disturbance, psychotic disturbance, mood disturbance, and anxiety; F20.9 Schizophrenia, unspecified; G40.909 Epilepsy, unspecified, not intractable, without status epilepticus; L89.159 Pressure ulcer of sacral region, unspecified stage; K44.9 Diaphragmatic hernia without obstruction or gangrene; N40.0 Benign prostatic hyperplasia without lower urinary tract symptoms; R47.02 Dysphasia; F32.9 Major depressive disorder, single episode, unspecified; G89.29 Other chronic pain; M54.5 Low back pain; B96.4 Proteus (mirabilis) (morganii) as the cause of diseases classified elsewhere; I12.9 Hypertensive chronic kidney disease with stage 1 through stage 4 chronic kidney disease, or unspecified chronic kidney disease; I25.10 Atherosclerotic heart disease of native coronary artery without angina pectoris; I48.91 Unspecified atrial fibrillation; I49.3 Ventricular premature depolarization; Z91.19 Patient's noncompliance with other medical treatment and regimen; Z90.49 Acquired absence of other specified parts of digestive tract; Z22.322 Carrier or suspected carrier of Methicillin resistant Staphylococcus aureus; Z88.8 Allergy status to other drugs, medicaments and biological substances; Z79.82 Long term (current) use of aspirin; Z79.899 Other long term (current) drug therapy; Z68.22 Body mass index [BMI] 22.0-22.9, adult
CPT/HCPCS: 36415; 36600; 71045; 74018; 76705; 76770; 78278; 80048; 80053; 80076; 80185; 80202; 81003; 82040; 82150; 82270; 82375; 82550; 82575; 82805; 82962; 83605; 83735; 83880; 84100; 84132; 84145; 84156; 84439; 84443; 84478; 84484; 85014; 85018; 85025; 85027; 86850; 86900; 86920; 86927; 87077; 87186; 87493; 88305; 88313; 93005; 93306; 94002; 94003; 94640; 94667; 97163; 99291; A9560; C9113; J0692; J0696; J1165; J1644; J1953; J2185; J2250; J2270; J2543; J2704; J2765; J3010; J3370; J3430; J3480; J3490; J7030; J7040; J7050; J7060; J7070; J7608; J7611; J7620; P9016; P9017; P9047; A4315

== ENCOUNTER 2019-05-19 10:55 | Inpatient (IN) | payer MEDICARE, MEDICAID ==
[~2019-05-19] VITALS: Ht 170.2 cm; Wt 49.4 kg
[2019-05-19] MEDS ORDERED: PIPERACILLIN/TAZ 3.375G PREMIX 50 ML IV ONE (11:30)
[2019-05-19] MEDS ORDERED: SODIUM CHLORIDE 0.9% 1000ML BAG (SEPSIS BOLUS) IV ONE (11:30)
[2019-05-19] MEDS ORDERED: VANCOMYCIN 1 G PREMIX 200 ML IV ONE (11:30)
[2019-05-19 11:43] LABS: BASOPHILS % 0.6 % (0.0-2.0); EOSINOPHILS % 0.9 % (0.0-5.0); HEMATOCRIT. 31.5 % (42.0-52.0); LYMPHOCYTES % 8.7 % (20.0-50.0); MEAN CORPUSCULAR HEMOGLOBIN 27.3 pg (28.0-32.0); MEAN CORPUSCULAR VOLUME 85.7 fL (80.0-94.0); MEAN PLATELET VOLUME 9.9 fl (7.4-10.4); MONOCYTES % 14.5 % (2.0-8.0); NEUTROPHILS % 75.3 % (40.0-76.0); PLATELET 368 x1000/uL (130-400); RED BLOOD CELL COUNT 3.67 mill/uL (4.7-6.1); RED CELL DISTRIBUTION WIDTH 16.3 % (11.6-14.6)
[2019-05-19 11:46] LABS: INR 1.1; PROTHROMBIN TIME 11.4 sec (9.6-11.0)
[2019-05-19 11:47] LABS: CHLORIDE 111 mEq/L (98-107)
[2019-05-19 12:21] LABS: CLARITY URINE CLOUDY (CLEAR); COLOR URINE YELLOW (YELLOW); KETONES URINE NEGATIVE (NEGATIVE); LEUKOCYTE ESTERASE URINE TRACE (NEGATIVE); NITRITE URINE NEGATIVE (NEGATIVE); OCCULT BLOOD URINE 2+ (NEGATIVE); PH URINE 5.5 (4.5-8.0); PROTEIN URINE 3+ (NEGATIVE); SPECIFIC GRAVITY URINE 1.021 (1.005-1.030)
[2019-05-19] MEDS ORDERED: IOHEXOL-350 100 ML BOTTLE ONE (21:11)
[2019-05-20 06:00] VITALS: BP 135/72
[2019-05-20] MEDS ORDERED: FOLI100T GT (06:53)
[2019-05-20] MEDS ORDERED: PHEN100C4 GT (06:53)
[2019-05-20] MEDS ORDERED: LACT10SO6 GT (06:53)
[2019-05-20] MEDS ORDERED: BENZ1TAB7 GT (06:53)
[2019-05-20] MEDS ORDERED: ASPI-1497 GT (06:53)
[2019-05-20] MEDS ORDERED: TAMS-11 GT (06:53)
[2019-05-20] MEDS ORDERED: TOPUD GT (06:53)
[2019-05-20] MEDS ORDERED: LEVE1000 GT (06:53)
[2019-05-20 08:00] VITALS: BP 138/73
[2019-05-20] MEDS ORDERED: LEVETIRACETAM 500MG TABLET PO SCH (09:30)
[2019-05-20] MEDS: PHENYTOIN 100 MG/4 ML UDC GT SCH ×3 (11:14→21:16)
[2019-05-20] MEDS: LEVETIRACETAM 500MG/5ML CUP PO SCH ×2 (11:14→20:46)
[2019-05-20 12:00] VITALS: BP 138/93
[2019-05-20] MEDS ORDERED: VANCOMYCIN 1 G PREMIX 200 ML IV SCH (12:00)
[2019-05-20] MEDS: DEXT 5%/0.45% NACL 1000ML 1,000 ML IV SCH ×2 (13:28→21:17)
[2019-05-20] MEDS: IPRATROPIUM/ALBUTEROL 0.5-3(2.5)MG/3ML NEB HHN SCH ×3 (13:55→20:05)
[2019-05-20] MEDS: VANCOMYCIN 750 MG PREMIX 150 ML IV SCH (15:27)
[2019-05-20 16:00] VITALS: BP 101/69
[2019-05-20 20:00] VITALS: BP 106/66
[2019-05-21] VITALS (7 sets, daily range): BP systolic 100–106; BP diastolic 66–71
[2019-05-21] MEDS: PHENYTOIN 100 MG/4 ML UDC GT SCH ×3 (05:46→22:00)
[2019-05-21 06:51] LABS: BASOPHILS % 0.4 % (0.0-2.0); EOSINOPHILS % 0.6 % (0.0-5.0); HEMATOCRIT. 27.4 % (42.0-52.0); HEMOGLOBIN. 9.1 g/dL (14.0-18.0); LYMPHOCYTES % 9.7 % (20.0-50.0); MEAN CORPUSCULAR HEMOGLOBIN 28.5 pg (28.0-32.0); MEAN CORPUSCULAR VOLUME 85.4 fL (80.0-94.0); MEAN PLATELET VOLUME 10.3 fl (7.4-10.4); MONOCYTES % 11.9 % (2.0-8.0); NEUTROPHILS % 77.4 % (40.0-76.0); PLATELET 375 x1000/uL (130-400); RED BLOOD CELL COUNT 3.21 mill/uL (4.7-6.1); RED CELL DISTRIBUTION WIDTH 16.6 % (11.6-14.6)
[2019-05-21 08:32] LABS: CHLORIDE 116 mEq/L (98-107)
[2019-05-21] MEDS: LEVETIRACETAM 500MG/5ML CUP PO SCH ×2 (08:32→21:00)
[2019-05-21] MEDS: VANCOMYCIN 750 MG PREMIX 150 ML IV SCH (08:32)
[2019-05-21] MEDS ORDERED: ENOXAPARIN 30MG/0.3ML SYR SUBCUT SCH (09:00)
[2019-05-21] MEDS: IPRATROPIUM/ALBUTEROL 0.5-3(2.5)MG/3ML NEB HHN SCH ×4 (09:04→21:33)
[2019-05-21] MEDS: DEXTROSE 5% WATER 1,000 ML IV SCH (13:37)
[2019-05-21] MEDS: APIXABAN 5 MG TABLET PO SCH (18:39)
[2019-05-21] MEDS: PHENYTOIN SODIUM 100MG/2ML VIAL IV SCH (23:30)
[2019-05-21] MEDS: LEVETIRACETAM 1000MG/100ML 100 ML IV SCH (23:31)
[2019-05-22] VITALS: BP 112/80
[2019-05-22] MEDS: VANCOMYCIN 750 MG PREMIX 150 ML IV SCH ×2 (02:02→20:46)
[2019-05-22] MEDS: IPRATROPIUM/ALBUTEROL 0.5-3(2.5)MG/3ML NEB HHN SCH ×5 (03:00→21:33)
[2019-05-22 04:00] VITALS: BP 101/66
[2019-05-22] MEDS: DEXTROSE 5% WATER 1,000 ML IV SCH ×2 (04:21→11:44)
[2019-05-22] MEDS: PHENYTOIN SODIUM 100MG/2ML VIAL IV SCH ×3 (05:42→21:01)
[2019-05-22 08:00] VITALS: BP 101/70
[2019-05-22] MEDS: LEVETIRACETAM 1000MG/100ML 100 ML IV SCH ×2 (08:32→20:46)
[2019-05-22] MEDS: APIXABAN 5 MG TABLET PO SCH ×2 (08:35→17:23)
[2019-05-22 09:48] LABS: BASOPHILS % 0.3 % (0.0-2.0); EOSINOPHILS % 0.7 % (0.0-5.0); HEMATOCRIT. 29.9 % (42.0-52.0); HEMOGLOBIN. 9.6 g/dL (14.0-18.0); LYMPHOCYTES % 11.4 % (20.0-50.0); MEAN CORPUSCULAR HEMOGLOBIN 27.6 pg (28.0-32.0); MEAN CORPUSCULAR VOLUME 86.2 fL (80.0-94.0); MEAN PLATELET VOLUME 9.8 fl (7.4-10.4); MONOCYTES % 11.6 % (2.0-8.0); PLATELET 396 x1000/uL (130-400); RED BLOOD CELL COUNT 3.47 mill/uL (4.7-6.1)
[2019-05-22 09:55] LABS: CHLORIDE 114 mEq/L (98-107)
[2019-05-22 12:00] VITALS: BP 127/77
[2019-05-22 16:00] VITALS: BP 103/63
[2019-05-22] MEDS: LIPASE/PROTEASE/AMYLASE 4,200/14,200/24,600 UNITS CAP DR PO SCH (16:54)
[2019-05-22 20:00] VITALS: BP 93/65
[2019-05-23] VITALS: BP 92/62
[2019-05-23] MEDS: IPRATROPIUM/ALBUTEROL 0.5-3(2.5)MG/3ML NEB HHN SCH ×6 (00:42→20:53)
[2019-05-23] MEDS: DEXTROSE 5% WATER 1,000 ML IV SCH ×2 (03:54→14:56)
[2019-05-23 04:00] VITALS: BP 107/69
[2019-05-23] MEDS: PHENYTOIN SODIUM 100MG/2ML VIAL IV SCH ×3 (05:12→21:53)
[2019-05-23 07:45] LABS: BASOPHILS % 0.9 % (0.0-2.0); EOSINOPHILS % 1.5 % (0.0-5.0); HEMATOCRIT. 26.9 % (42.0-52.0); HEMOGLOBIN. 8.7 g/dL (14.0-18.0); LYMPHOCYTES % 13.2 % (20.0-50.0); MEAN CORPUSCULAR HEMOGLOBIN 27.7 pg (28.0-32.0); MEAN CORPUSCULAR VOLUME 85.8 fL (80.0-94.0); MEAN PLATELET VOLUME 10.7 fl (7.4-10.4); MONOCYTES % 10.9 % (2.0-8.0); NEUTROPHILS % 73.5 % (40.0-76.0); PLATELET 383 x1000/uL (130-400); RED BLOOD CELL COUNT 3.14 mill/uL (4.7-6.1); RED CELL DISTRIBUTION WIDTH 16.2 % (11.6-14.6)
[2019-05-23 07:48] VITALS: BP 118/69
[2019-05-23] MEDS: APIXABAN 5 MG TABLET PO SCH ×2 (08:00→17:08)
[2019-05-23] MEDS: LIPASE/PROTEASE/AMYLASE 4,200/14,200/24,600 UNITS CAP DR PO SCH ×3 (08:00→17:06)
[2019-05-23 08:08] LABS: CHLORIDE 113 mEq/L (98-107)
[2019-05-23] MEDS: LEVETIRACETAM 1000MG/100ML 100 ML IV SCH ×2 (08:47→21:53)
[2019-05-23] MEDS ORDERED: POTASSIUM CHLORIDE 20MEQ/PACKET GT NR (10:30)
[2019-05-23 12:00] VITALS: BP 100/68
[2019-05-23] MEDS: VANCOMYCIN 750 MG PREMIX 150 ML IV SCH (14:56)
[2019-05-23 16:00] VITALS: BP 100/66
[2019-05-23 20:00] VITALS: BP 103/76
[2019-05-24] VITALS: BP 99/61
[2019-05-24] MEDS: IPRATROPIUM/ALBUTEROL 0.5-3(2.5)MG/3ML NEB HHN SCH ×5 (00:59→15:18)
[2019-05-24 04:00] VITALS: BP 99/64
[2019-05-24] MEDS: PHENYTOIN SODIUM 100MG/2ML VIAL IV SCH ×2 (06:02→13:08)
[2019-05-24] MEDS: DEXTROSE 5% WATER 1,000 ML IV SCH (06:02)
[2019-05-24 07:35] LABS: CHLORIDE 109 mEq/L (98-107)
[2019-05-24 07:42] LABS: BASOPHILS % 0.5 % (0.0-2.0); EOSINOPHILS % 1.2 % (0.0-5.0); HEMATOCRIT. 26.6 % (42.0-52.0); HEMOGLOBIN. 8.7 g/dL (14.0-18.0); LYMPHOCYTES % 11.8 % (20.0-50.0); MEAN CORPUSCULAR HEMOGLOBIN 27.8 pg (28.0-32.0); MEAN CORPUSCULAR VOLUME 85.4 fL (80.0-94.0); MEAN PLATELET VOLUME 10.4 fl (7.4-10.4); MONOCYTES % 10.4 % (2.0-8.0); NEUTROPHILS % 76.1 % (40.0-76.0); PLATELET 427 x1000/uL (130-400); RED BLOOD CELL COUNT 3.11 mill/uL (4.7-6.1)
[2019-05-24 08:00] VITALS: BP 100/67
[2019-05-24] MEDS: VANCOMYCIN 750 MG PREMIX 150 ML IV SCH (09:06)
[2019-05-24] MEDS: LIPASE/PROTEASE/AMYLASE 4,200/14,200/24,600 UNITS CAP DR PO SCH ×3 (09:06→17:45)
[2019-05-24] MEDS: LEVETIRACETAM 1000MG/100ML 100 ML IV SCH (09:06)
[2019-05-24] MEDS ORDERED: ALBUMIN HUMAN 25GM/100ML (25%) IV NR (09:45)
[2019-05-24 12:00] VITALS: BP 116/67
[2019-05-24] MEDS ORDERED: MAGNESIUM 1 G PREMIX 100 ML IV SCH (12:00)
[2019-05-24] MEDS ORDERED: ALBUMIN HUMAN 25GM/100ML (25%) IV SCH (14:00)
[2019-05-24] MEDS ORDERED: METOPROLOL TARTRATE 25MG TABLET PO SCH (14:30)
[2019-05-24 14:48] VITALS: BP 116/67
[2019-05-24 16:00] VITALS: BP 100/60
[2019-05-28] MEDS ORDERED: APIXABAN 5 MG TABLET PO SCH (17:00)
== END 2019-05-24 18:30 | DRG 70 ==
LOC: ER 10:55 → 8WST 17:41 → ENRESERV 05-20 04:22
PROVIDERS: ADMIT Internal Medicine; ATTEND Internal Medicine
DX: G93.41 Metabolic encephalopathy (principal); J18.9 Pneumonia, unspecified organism; E43 Unspecified severe protein-calorie malnutrition; K85.90 Acute pancreatitis without necrosis or infection, unspecified; N17.9 Acute kidney failure, unspecified; E87.0 Hyperosmolality and hypernatremia; I82.411 Acute embolism and thrombosis of right femoral vein; I82.431 Acute embolism and thrombosis of right popliteal vein; I47.2 Ventricular tachycardia; F03.90 Unspecified dementia, unspecified severity, without behavioral disturbance, psychotic disturbance, mood disturbance, and anxiety; F29 Unspecified psychosis not due to a substance or known physiological condition; G40.909 Epilepsy, unspecified, not intractable, without status epilepticus; I12.9 Hypertensive chronic kidney disease with stage 1 through stage 4 chronic kidney disease, or unspecified chronic kidney disease; D64.9 Anemia, unspecified; I48.91 Unspecified atrial fibrillation; L89.226 Pressure-induced deep tissue damage of left hip; L89.150 Pressure ulcer of sacral region, unstageable; I69.320 Aphasia following cerebral infarction; E78.5 Hyperlipidemia, unspecified; I25.10 Atherosclerotic heart disease of native coronary artery without angina pectoris; E87.8 Other disorders of electrolyte and fluid balance, not elsewhere classified; N18.9 Chronic kidney disease, unspecified; N40.0 Benign prostatic hyperplasia without lower urinary tract symptoms; R09.02 Hypoxemia; I45.10 Unspecified right bundle-branch block; E83.42 Hypomagnesemia; R74.0 Nonspecific elevation of levels of transaminase and lactic acid dehydrogenase [LDH]; Z88.8 Allergy status to other drugs, medicaments and biological substances; Z79.82 Long term (current) use of aspirin; Z79.899 Other long term (current) drug therapy; Z87.440 Personal history of urinary (tract) infections
CPT/HCPCS: 36415; 71045; 71275; 80048; 80053; 80202; 81003; 83605; 83735; 83880; 84145; 84443; 84484; 85025; 87106; 93005; 93970; 94640; 96365; 99291; A6261; J1165; J1650; J1953; J2543; J3370; J3475; J7030; J7040; J7070; J7620; P9047; Q9967